=== PATIENT | male | born 1970 | race Caucasian/White ===

== ENCOUNTER 2016-10-16 07:37 | Emergency (ER) | payer BC ==
--- NOTE | 2016-10-16 07:48 | Emergency Department Record ---
History of Present Illness - General Chief Complaint: Shortness of breath Stated Complaint: SHORT OF BREATH/RACING HEART Time Seen by Provider: 10/16/16 07:47 Source: Patient Mode of Arrival: Ambulatory Limitations: No limitations - History of Present Illness Initial Comments: The patient is here due to a 3 hour hx of feeling like his heart is racing and beating hard with mild shortness of breath. The feeling did also start with anxiety. He denies any CP, back pain or any CP with exertion. The patient has had this type of episode in the past and it has been attributed to anxiety. He has been having a lot of issues with personal problems at home due to family events relating to his granddaughter being murdered. The perpetrator was sentenced 3 days ago and he was in court for it and now is having trouble sleeping. He did just see a counselor yesterday who did tell him he has anxiety in addition to PTSD. 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 The patient had a similar issue 2.5 years ago and was seen in the ER and discharged. He then did see a formulation technician and had a neg EST. Complaint: Shortness of breath Onset/Timin -: Hour(s) Consistency: Constant Improves With: Nothing Worsens With: Other Context: Anxiety Associated Symptoms: Denies other symptoms Treatments Prior to Arrival: None - Related Data Home Medications Medication Instructions Recorded Confirmed Last Taken Duloxetine HCl [Cymbalta] 30 mg PO DAILY 07/05/14 10/16/16 Unknown Lansoprazole [Prevacid] 30 mg PO DAILY 07/05/14 10/16/16 Unknown Previous Rx's Medication Instructions Recorded Metformin HCl [Glucophage] 500 mg PO DAILY #30 tablet 07/05/14 Lorazepam [Ativan] 1 mg PO BID #6 tablet 10/16/16 Allergies Allergy/AdvReac Type Severity Reaction Status Date / Time cefazolin sodium Allergy "my throat Verified 07/05/14 06:57 [From Kefzol] gets scratchy." Travel Screening - Travel/Exposure Within Last 30 Days Have you traveled within the last 30 days?: No Review of Systems Constitutional: Denies: Chills, Fever Eyes: Denies: Eye discharge ENT: Denies: Congestion Respiratory: Denies: Cough Cardiovascular: Denies: Arrhythmia, Chest pain, Dyspnea on exertion Endocrine: Denies: Fatigue Gastrointestinal: Denies: Diarrhea Genitourinary: Denies: Dysuria Musculoskeletal: Denies: Back pain Skin: Denies: Bruising Past Medical History - SOCIAL HISTORY Smoking Status: Never smoker Alcohol Use: None Drug Use: None - RESPIRATORY Hx Respiratory Disorders: No - CARDIOVASCULAR Hx Cardio Disorders: No - NEURO Hx Neuro Disorders: No - GI Hx GI Disorders: Yes Comment:: HASTINGS disease - Hx Genitourinary Disorders: No - ENDOCRINE Hx Endocrine Disorders: No - MUSCULOSKELETAL Hx Musculoskeletal Disorders: No - PSYCH Hx Psych Problems: No - HEMATOLOGY/ONCOLOGY Hx Hematology/Oncology Disorders: No Family Medical History Any Significant Family History?: Yes Hx Heart Disease: Father, Grandparents *Heart Comment: father- bypass surgery x 4 first at age 38 Physical Exam - General General Appearance: Alert, Oriented x3, Cooperative, No acute distress - Head Head exam: Atraumatic, Normocephalic, Normal inspection - Eye Eye exam: Normal appearance - ENT Throat exam: Normal inspection. negative: Tonsillar erythema, Tonsillar exudate - Neck Neck exam: Normal inspection, Full ROM. negative: Lymphadenopathy, Meningismus , Tenderness - Respiratory Respiratory exam: Normal lung sounds bilaterally. negative: Respiratory distress - Cardiovascular Cardiovascular Exam: Regular rate, Normal rhythm, Normal heart sounds. negative : Diastolic murmur, Systolic murmur - GI/Abdominal GI/Abdominal exam: Soft, Normal bowel sounds. negative: Tenderness - Extremities Extremities exam: Normal inspection, Full ROM, Normal capillary refill. negative: Calf tenderness, Pedal edema, Tenderness - Neurological Neurological exam: Alert, Normal gait. negative: Abnormal gait, Motor sensory deficit - Psychiatric Psychiatric exam: negative: Depressed, Flat affect Course Vital Signs 10/16/16 07:39 Temperature 97.9 F Pulse Rate 95 H Respiratory 16 Rate Blood Pressure 150/84 Pulse Ox 99 - Reevaluation(s) Reevaluation #1: The patient is doing very well at this time. He denies any pain or discomfort. I strongly doubt any cardiac issues due to the patient not having any pain or discomfort and do believe his symptoms are due to anxiety which he believes also. I also doubt any problems due to a PE due to the patient being Low prob by Wells Criteria and PERC neg. He is to see his PCP early next week and return to the ER for any problems. 10/16/16 08:56 Reevaluation #2: On further reflection I did call the patient at home regarding performing further cardiac tests here in the ER and possibly having the patient stay in the hospital overnight to be sure his heart is OK and not causing his symptoms. I did recommend having the patient return to the ER for further testing and possibly obtaining a cardiology consult. The patient states he has an appointment with his PCP at 2:00 pm today and would like to see him about the issues. He states if his PCP wants him to stay he will return to the ER then for further evaluation. 10/16/16 09:47 Medical Decision Making - Data Complexity MDM Data: Labs Ordered and/or Reviewed, X-Ray Ordered and/or Reviewed, EKG Ordered and/or Reviewed - Lab Data Result diagrams: 10/16/16 08:10 10/16/16 08:10 - EKG Data -: EKG Interpreted by Me EKG: No Acute Changes, Unchanged From Previous - Radiology Data Radiology results: Report reviewed (CXR: Neg.) Disposition Disposition: Discharge Clinical Impression: Anxiety attack Disposition: Home, Self-Care Condition: (1) Good Instructions: Generalized Anxiety Disorder (ED) Additional Instructions: Please rest today and use the Ativan if needed. Please increase your Metformin to 500 mg BID. Please see your PCP for recheck early next week and return to the ER for any wosening anxiety, or any Chest Pain, Shortness of breath, or difficulty breathing. Prescriptions: Lorazepam [Ativan] 1 mg PO BID #6 tablet Forms: Patient Portal Access Time of Disposition: 08:56
[2016-10-16 08:16] LABS: BASO % 0.6 % (0-6); GRAN % 68.6 % (47-80); HEMATOCRIT 44.9 % (42.0-52.0); HEMOGLOBIN 15.2 gm/dl (14.0-18.0); LYMPH % 24.2 % (16-45); MEAN CELL VOLUME 84.2 fl (81-97); MEAN CORPUSCULAR HEMOGLOBIN 28.5 pg (27-33); MEAN CORPUSCULAR HGB CONC 33.9 g/dl (32-36); MEAN PLATELET VOLUME 10.3 fl (7.4-10.4); MONO % 5.6 % (0-9); PLATELET COUNT 261 K/uL (130-400); RED BLOOD COUNT 5.33 M/uL (4.40-5.70); RED CELL DISTRIBUTION WIDTH 13.9 % (11.5-14.5); WHITE BLOOD COUNT W/O DIFF 10.5 K/uL (4.2-12.2)
[2016-10-16 08:24] LABS: BLOOD UREA NITROGEN 15 mg/dL (9-20); CREATINE PHOSPHOKINASE 36 U/L (55-170); CREATININE 0.6 mg/dL (0.66-1.25); EST GLOMERULAR FILTRATION RATE > 60 ml/min; GLUCOSE,RANDOM 286 mg/dL (70-110)
[2016-10-16 08:39] LABS: CKMB < 0.2 ug/L (0-6); TROPONIN I < 0.012 ng/mL (0.00-0.034)
--- NOTE | 2016-10-20 15:59 | RADIOLOGY REPORT ---
DATE: 10/16/2016. EXAM: TWO VIEWS OF THE CHEST. HISTORY: The patient has acute shortness of breath. TECHNIQUE: Two views of the chest were provided along with a comparison study dated 07/05/2014. FINDINGS: The cardiac silhouette is within normal limits for size and contour. The donte appear unremarkable. There is no radiographic evidence of a focal infiltrate or pleural effusion. No pneumothorax is noted. The visualized osseus thoracic structures are unremarkable. IMPRESSION: NO RADIOGRAPHIC EVIDENCE OF AN ACUTE INTRATHORACIC PROCESS. JOB NUMBER: [id number] [facility]
== END 2016-10-16 09:08 | disposition home or self-care (01) ==
LOC: ER 07:37
DX: F41.0 Panic disorder [episodic paroxysmal anxiety] (principal); R06.02 Shortness of breath

== ENCOUNTER 2016-10-16 11:48 | Observation (INO) | payer BC ==
--- NOTE | 2016-10-16 12:02 | Emergency Department Record ---
History of Present Illness - General Chief Complaint: Rapid heartbeat Stated Complaint: RACING HEART/SOB Time Seen by Provider: 10/16/16 11:49 Source: Patient Mode of Arrival: Ambulatory Limitations: No limitations - History of Present Illness Initial Comments: The patient is here due to having more of his palpitations and ANA M. He denies any CP or back pain but is having mild epigastric discomfort. The patient was in the ER a few hours ago here and diagnosed with anxiety. He does have cardiac risk factors of DMII, and a strong family hx of CAD. MD Complaint: Palpitations - Related Data Home Medications Medication Instructions Recorded Confirmed Last Taken Duloxetine HCl [Cymbalta] 30 mg PO DAILY 07/05/14 10/16/16 Unknown Lansoprazole [Prevacid] 30 mg PO DAILY 07/05/14 10/16/16 Unknown Previous Rx's Medication Instructions Recorded Metformin HCl [Glucophage] 500 mg PO DAILY #30 tablet 07/05/14 Lorazepam [Ativan] 1 mg PO BID #6 tablet 10/16/16 Allergies Allergy/AdvReac Type Severity Reaction Status Date / Time cefazolin sodium Allergy "my throat Verified 07/05/14 06:57 [From Kefzol] gets scratchy." Review of Systems Constitutional: Denies: Chills, Fever Eyes: Denies: Eye discharge ENT: Denies: Congestion Respiratory: Denies: Cough Past Medical History - SOCIAL HISTORY Smoking Status: Never smoker Drug Use: None - RESPIRATORY Hx Respiratory Disorders: No - CARDIOVASCULAR Hx Cardio Disorders: No - NEURO Hx Neuro Disorders: No - GI Hx GI Disorders: Yes Comment:: HASTINGS disease - Hx Genitourinary Disorders: No - ENDOCRINE Hx Endocrine Disorders: No - MUSCULOSKELETAL Hx Musculoskeletal Disorders: No - PSYCH Hx Psych Problems: No - HEMATOLOGY/ONCOLOGY Hx Hematology/Oncology Disorders: No Family Medical History Hx Heart Disease: Father, Grandparents *Heart Comment: father- bypass surgery x 4 first at age 38 Physical Exam - General General Appearance: Alert, Oriented x3, Cooperative, No acute distress - Head Head exam: Atraumatic, Normocephalic, Normal inspection - Eye Eye exam: Normal appearance, PERRL - Neck Neck exam: Normal inspection, Full ROM. negative: Tenderness - Respiratory Respiratory exam: Normal lung sounds bilaterally. negative: Respiratory distress - Cardiovascular Cardiovascular Exam: Regular rate, Normal rhythm, Normal heart sounds - Extremities Extremities exam: Normal inspection, Full ROM, Normal capillary refill. negative: Tenderness Course - Reevaluation(s) Reevaluation #1: The patient is doing well. He is resting comfortably with no pain or discomfort. I did discuss the plan with him and the need for a short stay admission to be sure his heart is OK and he agrees. I then did discuss the case with María (JUAN) and she agrees to the admission. 10/16/16 12:50 Medical Decision Making - Data Complexity MDM Data: Labs Ordered and/or Reviewed, EKG Ordered and/or Reviewed - EKG Data -: EKG Interpreted by Me EKG: No Acute Changes, Unchanged From Previous Disposition Disposition: Admit Clinical Impression: Atypical Chest Pain Disposition: Still a Patient at [facility] Decision to Admit: Admit from ER Decision to Admit Date: 10/16/16 Decision to Admit Time: 12:51 Accepting Physician: Marylin Time Discussed w/Accepting Physician: 12:51 Condition: (2) Stable Forms: Patient Portal Access Time of Disposition: 12:51
[2016-10-16 12:48] LABS: CKMB < 0.2 ug/L (0-6); TROPONIN I < 0.012 ng/mL (0.00-0.034)
[2016-10-16] MEDS ORDERED: LORAZEPAM 0.5 MG TABLET PO ONE (12:52)
[2016-10-16] MEDS ORDERED: ASPIRIN 325 MG TABLET PO ONE (12:56)
[2016-10-16] MEDS ORDERED: LORAZEPAM 0.5 MG TABLET PO PRN (14:34)
[2016-10-16] MEDS ORDERED: ACETAMINOPHEN 500 MG TABLET PO PRN (14:34)
[2016-10-16] MEDS ORDERED: NITROGLYCERIN 0.4MG SL TABLET #25 BTL SL PRN (14:34)
[2016-10-16] MEDS: ASPIRIN 325 MG TAB ENTERIC-COATED PO SCH (14:55)
[2016-10-16] MEDS: METFORMIN 500 MG TABLET PO SCH (17:16)
[2016-10-17] MEDS ORDERED: PANTOPRAZOLE SODIUM 40 MG TABLET PO SCH (07:00)
[2016-10-17 08:06] LABS: ANION GAP 14.4 (7-16); BLOOD UREA NITROGEN 13 mg/dL (9-20); CARBON DIOXIDE 23.6 mmol/L (22-30); CREATININE 0.5 mg/dL (0.66-1.25); EST GLOMERULAR FILTRATION RATE > 60 ml/min; GLUCOSE,RANDOM 257 mg/dL (70-110)
[2016-10-17] MEDS: ASPIRIN 325 MG TAB ENTERIC-COATED PO SCH ×2 (08:36→09:18)
[2016-10-17] MEDS: DULOXETINE HCL 30 MG CAPSULE.DR PO SCH ×2 (08:36→09:18)
[2016-10-17] MEDS: METFORMIN 500 MG TABLET PO SCH (08:41)
[2016-10-17] MEDS ORDERED: METFORMIN 500 MG PO SCH (08:45)
--- NOTE | 2016-10-17 17:08 | History & Physical ---
History of Present Illness - Date of Service Date of Service for History & Physical: 10/17/16 - History of Present Illness Admitting Diagnosis: 1. Atypical Chest Pain, R/O [place]. History of Present Illness: 46yo male with CC of heart palpitations. Patient has history of T2DM, anxiety, and HASTINGS. Patient presented to ED after having palpitations and ANA M. He denied any CP or back pain but was having mild epigastric discomfort. He had had similar episodes in the past with anxiety/stress but this did not resolve right away so decided to come to the ED. While in the ED, patient had EKG that was negative for ischemic changes. 1st set of CE returned WNL range. The rest of his labs including cbc and cmp were unremarkable. Due to patient's cardiovascular risk factors, he was admitted for serial enzymes and chest pain rule out. 10/17/16- Patient states his palpitations resolved yesterday while in the ED. He describes the feeling as if his heart was just beating very hard. Wasn't really causing pain and did not feel like his heart was racing. He was a little short of breath at the time but that has resolved as well. He has followed with Dr. Bain, cardiology in the past. Last saw him about 3 years ago. Says he had a stress test done at that time that was normal. Patient does have significant family CVD history. His father underwent open heart bypass when he was in his 30 's. Finish Mill Operator: Odell Travel Screening - Travel/Exposure Within Last 30 Days Have you traveled within the last 30 days?: No - Travel/Exposure Within Last Year Have you traveled outside the [place] in the last year?: No - Travel Symptoms Symptom Screening: None Review of Systems Constitutional: Denies: Chills, Fever Eyes: Denies: Eye discharge ENT: Denies: Congestion Respiratory: Denies: Cough Cardiovascular: Reports: Palpitations (yesterday). Denies: Chest pain, Edema, Syncope Endocrine: Denies: Fatigue Gastrointestinal: Denies: Abdominal pain, Nausea, Vomiting Neurological: Denies: Abnormal gait, Confusion, Headache, Numbness, Paresthesias , Seizure, Tingling, Tremors, Vertigo, Weakness Psychiatric: Reports: Anxiety, Depression Past Medical History - SOCIAL HISTORY Smoking Status: Never smoker Alcohol Use: None Drug Use: None - RESPIRATORY Hx Respiratory Disorders: No - CARDIOVASCULAR Hx Cardio Disorders: No - NEURO Hx Neuro Disorders: No - GI Hx GI Disorders: Yes Comment:: HASTINGS disease - Hx Genitourinary Disorders: No - ENDOCRINE Hx Endocrine Disorders: Yes Hx Diabetes: Yes Hx Thyroid Disease: Yes Comment:: borderline diabetic - MUSCULOSKELETAL Hx Musculoskeletal Disorders: Yes Hx Arthritis: Yes (back) - PSYCH Hx Psych Problems: Yes Hx Anxiety: No Hx Behavior Problems: No Hx Depression: Yes Hx Emotional Abuse: No Hx Sexual Abuse: No Hx Suicide Attempt: No Major Depressive Episode: No Feelings of Hopelessness: No - HEMATOLOGY/ONCOLOGY Hx Hematology/Oncology Disorders: No Family Medical History Any Significant Family History?: Yes Hx Cancer: Mother, Brother/Sister Hx Heart Disease: Father, Grandparents *Heart Comment: father- bypass surgery x 4 first at age 38 H&P Meds/Allergies - Allergies Allergies: Allergies Allergy/AdvReac Type Severity Reaction Status Date / Time cefazolin sodium Allergy "my throat Verified 10/16/16 15:59 [From Kefzol] gets scratchy." - Home Medications Home Medications Medication Instructions Recorded Confirmed Last Taken Duloxetine HCl [Cymbalta] 30 mg PO DAILY 07/05/14 10/16/16 Unknown Lansoprazole [Prevacid] 30 mg PO DAILY 07/05/14 10/16/16 Unknown Metformin HCl [Metformin HCl ER] 500 mg PO BID 10/16/16 10/16/16 Unknown Previous Rx's Medication Instructions Recorded Lorazepam [Ativan] 1 mg PO BID #6 tablet 10/16/16 - Active Medications Active Medications: Current Medications Acetaminophen (Tylenol 500mg Tab) 500 mg PO Q6H PRN PRN Reason: PAIN/TEMP Aspirin (Ecotrin (Ec)) 325 mg PO DAILY [facility] Last Admin: 10/17/16 09:18 Dose: Not Given Duloxetine HCl (Cymbalta) 30 mg PO DAILY [facility] Last Admin: 10/17/16 09:18 Dose: Not Given Lorazepam (Ativan) 0.5 mg PO BID PRN PRN Reason: ANXIETY Metformin HCl (Glucophage Xr) 500 mg PO BIDWM [facility] Last Admin: 10/17/16 08:39 Dose: 500 mg Nitroglycerin (Nitrostat 0.4mg) 0.4 mg SL Q5MIN PRN PRN Reason: CHEST PAIN Stop: 10/18/16 14:35 Pantoprazole Sodium (Protonix) 40 mg PO DAILYAC [facility] Last Admin: 10/17/16 06:47 Dose: 40 mg Physical Exam - Vital Signs Vital Signs: Vital Signs - Last 24 Hrs Temp Pulse Pulse Resp BP BP Pulse Ox 10/17/16 09:00 94 H 18 10/17/16 08:50 97.5 F L 93 H 18 141/88 96 10/17/16 06:32 97.9 F 90 18 121/78 96 10/17/16 00:17 97.7 F 82 18 118/66 97 10/16/16 20:34 98.1 F 88 16 130/64 97 - General General Appearance: Alert, Oriented x3, Cooperative, No acute distress Limitations: No limitations - Head Head exam: Atraumatic, Normocephalic, Normal inspection - Eye Eye exam: Normal appearance, PERRL - Neck Neck exam: Normal inspection, Full ROM. negative: Tenderness - Respiratory Respiratory exam: Normal lung sounds bilaterally. negative: Respiratory distress - Cardiovascular Cardiovascular Exam: Regular rate, Normal rhythm, Normal heart sounds - GI/Abdominal GI/Abdominal exam: Soft, Normal bowel sounds. negative: Tenderness - Extremities Extremities exam: Normal inspection, Full ROM, Normal capillary refill. negative: Calf tenderness, Pedal edema, Tenderness - Neurological Neurological exam: Alert, Normal gait, Oriented X3, Reflexes normal - Psychiatric Psychiatric exam: Normal affect, Normal mood Results - Labs Result Diagrams: 10/17/16 07:40 Labs Last 24 Hours: Laboratory Results - last 24 hr 10/16/16 10/16/16 10/17/16 18:00 18:00 00:10 Sodium Potassium Chloride Carbon Dioxide Anion Gap BUN Creatinine Estimated GFR Random Glucose Calcium CK-MB (CK-2) < 0.2 < 0.2 Troponin I < 0.012 10/17/16 10/17/16 00:10 07:40 Sodium 135 L Potassium 4.1 Chloride 97 L Carbon Dioxide 23.6 Anion Gap 14.4 BUN 13 Creatinine 0.5 L Estimated GFR > 60 Random Glucose 257 H Calcium 8.7 CK-MB (CK-2) Troponin I < 0.012 VTE H&P Assessment - Risk for VTE Risk for VTE: No Risk Level: Low Risk Assessment Date: 10/17/16 Risk Assessment Time: 16:00 VTE Orders Placed or Will Be Placed: No VTE Reason for No Prophylaxis: Not Indicated Plan - Detailed Diagnosis and Plan (1) Atypical chest pain Status: Acute Base Code: R07.89 - OTHER CHEST PAIN Comment: 10/17/16- Heart palpitations resolved and have not returned. All 3 sets of CE returned WNL range. Repeat EKG this mornign was unchanged from previous. Do not feel pain was cardiac in origin but possibly related to stressful life event that occurred this week, however, patient does have several CVD risk factors (T2DM, obesity, family history) and has not had stress test in 3 years. -will order echo -will order treadmill stress test -continue to monitor vitals q8H (2) DVT prophylaxis Status: Acute Base Code: [id number] - Comment: 10/17/16- Patient low risk with no restricted mobility and has been up ambulating and will be doing treadmill stress test today as well. -will continue to encourage ambulation (3) Full code status Status: Acute Base Code: Z78.9 - OTHER SPECIFIED HEALTH STATUS Comment: 10/17/16- patient is full code
--- NOTE | 2016-10-17 17:13 | Discharge Summary ---
Providers Discharge Summary Date: 10/17/16 Date of admission: 10/16/16 13:16 Expected Date of Discharge: 10/17/16 Attending physician: RAYSHAWN FRENCH Primary care physician: JEFF PORTILLO D.O. Physical Exam - Vital Signs Vital Signs: Vital Signs - Last 24 Hrs Temp Pulse Pulse Resp BP BP Pulse Ox 10/17/16 09:00 94 H 18 10/17/16 08:50 97.5 F L 93 H 18 141/88 96 10/17/16 06:32 97.9 F 90 18 121/78 96 10/17/16 00:17 97.7 F 82 18 118/66 97 10/16/16 20:34 98.1 F 88 16 130/64 97 - General General Appearance: Alert, Oriented x3, Cooperative, No acute distress Limitations: No limitations - Head Head exam: Atraumatic, Normocephalic, Normal inspection - Eye Eye exam: Normal appearance, PERRL - Neck Neck exam: Normal inspection, Full ROM. negative: Tenderness - Respiratory Respiratory exam: Normal lung sounds bilaterally. negative: Respiratory distress - Cardiovascular Cardiovascular Exam: Regular rate, Normal rhythm, Normal heart sounds - Extremities Extremities exam: Normal inspection, Full ROM, Normal capillary refill. negative: Tenderness - Neurological Neurological exam: Alert, Normal gait, Oriented X3, Reflexes normal - Psychiatric Psychiatric exam: Normal affect, Normal mood Hospitalization - Hospitalization Admission Diagnosis: 1. Atypical Chest Pain, R/O [place]. - Problem List/Discharge Diagnosis (1) Atypical chest pain Status: Acute Base Code: R07.89 - OTHER CHEST PAIN Comment: 10/17/16- Heart palpitations resolved and have not returned. All 3 sets of CE returned WNL range. Repeat EKG this mornign was unchanged from previous. Preliminary echo report shows EF of 65% and Treadmill stress test was negative for ischemia. Do not feel this episode was cardiac in origin. -Will have patient follow up with Dr. burgess in 1-2 weeks and his PCP Dr. Portillo within 1 week. -I did encourage him to return to ED if he has return of his symptoms or new concerns. (2) Full code status Status: Acute Base Code: Z78.9 - OTHER SPECIFIED HEALTH STATUS Comment: 10/17/16- patient is full code (3) DVT prophylaxis Status: Acute Base Code: [id number] - Comment: 10/17/16- Patient low risk with no restricted mobility and has been up ambulating and will be doing treadmill stress test today as well. -will continue to encourage ambulation - Hospitalization Course Disposition: Home, Self-Care Hospital Course: 46yo male with CC of heart palpitations. Patient has history of T2DM, anxiety, and HASTINGS. Patient presented to ED after having palpitations and ANA M. He denied any CP or back pain but was having mild epigastric discomfort. He had had similar episodes in the past with anxiety/stress but this did not resolve right away so decided to come to the ED. While in the ED, patient had EKG that was negative for ischemic changes. 1st set of CE returned WNL range. The rest of his labs including cbc and cmp were unremarkable. Due to patient's cardiovascular risk factors, he was admitted for serial enzymes and chest pain rule out. 10/17/16- Patient states his palpitations resolved yesterday while in the ED. He describes the feeling as if his heart was just beating very hard. Wasn't really causing pain and did not feel like his heart was racing. He was a little short of breath at the time but that has resolved as well. He has followed with Dr. Burgess, cardiology in the past. Last saw him about 3 years ago. Says he had a stress test done at that time that was normal. Patient does have significant family CVD history. His father underwent open heart bypass when he was in his 30 's. Associate Pathologist: Odell Procedures: Cardiology Procedures 10/16/16 17:42 Echocardiogram 2D - Limited ONCE Stress EKG/STD Treadmill ONCE Abnormal Labs: Abnormal Lab Results 10/17/16 Range/Units 07:40 Sodium 135 L (136-145) mmol/L Chloride 97 L (98-107) mmol/L Creatinine 0.5 L (0.66-1.25) mg/dL Random Glucose 257 H (70-110) mg/dL Condition at Discharge: (2) Stable Discharge Medications - Discharge Medications Home Medications: Ambulatory Orders Duloxetine HCl [Cymbalta] 30 mg PO DAILY 07/05/14 [Last Taken Unknown] Lansoprazole [Prevacid] 30 mg PO DAILY 07/05/14 [Last Taken Unknown] Lorazepam [Ativan] 1 mg PO BID #6 tablet 10/16/16 [Last Taken Unknown] Metformin HCl [Metformin HCl ER] 500 mg PO BID 10/16/16 [Last Taken Unknown] Discharge Plan - Discharge Instructions Activity at Discharge: Resume Usual Activities As Tolerated Diet at Discharge: Low Fat, Low Cholesterol, Low Salt Diet Instructions: Palpitations (DC), Heart Healthy Diet (DC), Low Sodium Diet (DC) Additional Instructions: 2 Activity: As tolerated 2 Diet: Cardiac diet as tolerated 2 Consults: [] 2 Follow Up: [With Dr. Portillo within 1 week, call Thursday for appointment] 2 Dressing/Wound Care: (Type) (Change) 2 Additional: [Continue home medications Return to the emergency room with any new or worsening symptoms such as headache , heart palpitations, chest pain, difficulty in breathing, acute weakness.]
--- NOTE | 2016-10-18 11:29 | Stress Test Report ---
EXERCISE STRESS TEST ORDERING PHYSICIAN: Florencia Day M.D. INDICATIONS: None documented. BASELINE EKG: Sinus rhythm. Left ventricular hypertrophy. Poor R-wave progression. Ventricular rate 94. MD interval 168 milliseconds. QRS 84 milliseconds. QT corrected 440 milliseconds. Resting blood pressure 150/94. DESCRIPTION: The patient exercised on a motorized treadmill for 6 minutes and 12 seconds, achieving a peak MET level of approximately 7 METs. Peak heart rate was 150 beats per minute which was greater than 85% of the maximum age- predicted heart rate. Peak blood pressure was 190/100. Continuous ECG monitoring revealed no EKG changes that met diagnostic criteria for ischemia. There were no significant ventricular or atrial arrhythmias identified. The patient had no complaints of chest discomfort during exercise or in recovery. The test was terminated due to achievement of target heart rate and knee discomfort. IMPRESSIONS: 1. Negative exercise stress test to approximately 7 METs. 2. Hypertension at rest. 3. No chest discomfort. 4. Poor fitness level for age. 5. Clinical correlation recommended. Jacob Leggett D.O. Date Time JOB NUMBER: [id number] MTDD
== END 2016-10-17 18:55 | disposition home or self-care (01) ==
LOC: ER 11:48 → MEDSURG 13:16
PROVIDERS: ADMIT Family Medicine; ATTEND Family Medicine
DX: R07.89 Other chest pain (principal); F41.0 Panic disorder [episodic paroxysmal anxiety]; R06.02 Shortness of breath; Z78.9 Other specified health status; E11.9 Type 2 diabetes mellitus without complications; Z79.84 Long term (current) use of oral hypoglycemic drugs
CPT/HCPCS: 99284 ×2; 99285 ×2; 82550; 85025; 82553 ×2; 84484 ×2; 80048 ×2; 71020; 93005 ×2; 93017; 93010 ×2; G0378 ×2; 99220

== ENCOUNTER 2017-01-01 10:15 | Emergency (ER) | payer BC ==
--- NOTE | 2017-01-01 10:26 | Emergency Department Record ---
History of Present Illness - General Chief Complaint: Back Pain/Injury Stated Complaint: BACK AND HIP PAIN Time Seen by Provider: 01/01/17 10:24 Source: Patient Mode of Arrival: Ambulatory Limitations: No limitations - History of Present Illness Initial Comments: The patient is here due to low back pain for 5 days. The onset has been gradual with the pain located in the lower back and side areas. The patient denies any injury or trauma and has had no past similar issues. Movement and twisting increase the pain and there has been NO radiation of the pain down the legs, or any leg numbness, tingling, weakness or any bowel or bladder issues. The patient states his urine has been smelling strong and he is concerned about a kidney infection. MD Complaint: Back pain Onset/Timin -: Days(s) Similar Symptoms Previously: No Place: Home Radiation: Other Severity scale (1-10): 7 Quality: Burning Consistency: Constant Improves With: Immobilization Worsens With: Movement, Other Context: Unknown Associated Symptoms: Denies other symptoms - Related Data Home Medications Medication Instructions Recorded Confirmed Last Taken Duloxetine HCl [Cymbalta] 30 mg PO DAILY 07/05/14 01/01/17 Unknown Lansoprazole [Prevacid] 30 mg PO DAILY 07/05/14 01/01/17 Unknown Metformin HCl [Metformin HCl ER] 500 mg PO BID 10/16/16 01/01/17 Unknown Sitagliptin Phosphate [Januvia] 100 mg PO DAILY 01/01/17 01/01/17 Unknown Previous Rx's Medication Instructions Recorded Cyclobenzaprine HCl [Flexeril] 10 mg PO TID PRN #20 tablet 01/01/17 Naproxen [Naprosyn] 500 mg PO BID #14 tablet. 01/01/17 Allergies Allergy/AdvReac Type Severity Reaction Status Date / Time cefazolin sodium Allergy "my throat Verified 10/16/16 15:59 [From Kefzol] gets scratchy." Travel Screening - Travel/Exposure Within Last 30 Days Have you traveled within the last 30 days?: No Review of Systems Constitutional: Reports: Malaise. Denies: Chills, Fever Eyes: Denies: Eye discharge ENT: Denies: Congestion Respiratory: Denies: Cough, Dyspnea Cardiovascular: Denies: Arrhythmia, Chest pain Past Medical History - SOCIAL HISTORY Smoking Status: Never smoker Alcohol Use: None Drug Use: None - RESPIRATORY Hx Respiratory Disorders: No - CARDIOVASCULAR Hx Cardio Disorders: No - NEURO Hx Neuro Disorders: No - GI Hx GI Disorders: Yes Comment:: HASTINGS disease - Hx Genitourinary Disorders: No - ENDOCRINE Hx Endocrine Disorders: Yes Hx Diabetes: Yes Hx Thyroid Disease: Yes Comment:: borderline diabetic - MUSCULOSKELETAL Hx Musculoskeletal Disorders: Yes Hx Arthritis: Yes (back) - PSYCH Hx Psych Problems: Yes Hx Anxiety: No Hx Behavior Problems: No Hx Depression: Yes Hx Emotional Abuse: No Hx Sexual Abuse: No Hx Suicide Attempt: No - HEMATOLOGY/ONCOLOGY Hx Hematology/Oncology Disorders: No Family Medical History Any Significant Family History?: Yes Hx Cancer: Mother, Brother/Sister Hx Heart Disease: Father, Grandparents *Heart Comment: father- bypass surgery x 4 first at age 38 Physical Exam - General General Appearance: Alert, Oriented x3, Cooperative, No acute distress - Head Head exam: Atraumatic, Normocephalic, Normal inspection - Eye Eye exam: Normal appearance, PERRL - Neck Neck exam: Normal inspection, Full ROM. negative: Tenderness - Respiratory Respiratory exam: Normal lung sounds bilaterally. negative: Respiratory distress - Cardiovascular Cardiovascular Exam: Regular rate, Normal rhythm, Normal heart sounds - GI/Abdominal GI/Abdominal exam: Soft, Normal bowel sounds. negative: Distended, Rebound, Rigid, Tenderness - Back Back exam: Reports: Normal inspection, Paraspinal tenderness (L4-S1 area.), Other (Neg SLR bilaterally.). Denies: Muscle spasm, Vertebral tenderness - Neurological Neurological exam: Alert, Altered, Normal gait, Oriented X3, Reflexes normal. negative: Abnormal gait, Motor sensory deficit Course Vital Signs 01/01/17 10:18 Temperature 97.3 F L Pulse Rate 98 H Respiratory 20 Rate Blood Pressure 139/101 Pulse Ox 98 - Reevaluation(s) Reevaluation #1: I did discuss the lab and xray results with the patient. We did discuss the fact that his pain is not due to a kidney infection and probably is musculoskeletal in origin. He is to F/U with his PCP for recheck and to adjust his DM medicines. 01/01/17 11:30 Medical Decision Making - Data Complexity MDM Data: Labs Ordered and/or Reviewed, X-Ray Ordered and/or Reviewed - Lab Data Result diagrams: 01/01/17 10:30 01/01/17 10:30 - Radiology Data Radiology results: Report reviewed (LS Spine: No acute changes.) Disposition Disposition: Discharge Clinical Impression: Low back pain Qualifiers: Chronicity: acute Back pain laterality: unspecified Sciatica presence: without sciatica Qualified Code(s): M54.5 - Low back pain Disposition: Home, Self-Care Condition: (1) Good Instructions: Low Back Strain (ED) Additional Instructions: Please take the naprosyn and flexeril for pain as directed. Please see your PCP early next week for recheck and to adjust your DM medicines. Return to the ER for any increased pain, or any fever, weakness or bowel or bladder issues. Prescriptions: Cyclobenzaprine HCl [Flexeril] 10 mg PO TID PRN #20 tablet PRN Reason: Pain Naproxen [Naprosyn] 500 mg PO BID #14 tablet. Time of Disposition: 11:30
[2017-01-01 10:40] LABS: URINE APPEARANCE CLEAR; URINE BILIRUBIN NEGATIVE (NEGATIVE); URINE BLOOD NEGATIVE (NEGATIVE); URINE COLOR YELLOW; URINE KETONE NEGATIVE (NEGATIVE); URINE LEUKOCYTE ESTERASE NEGATIVE (NEGATIVE); URINE NITRITE NEGATIVE (NEGATIVE); URINE PROTEIN TRACE (NEGATIVE); URINE UROBILINOGEN 0.2 E.U./dL (0.20 - 1.00)
[2017-01-01 10:42] LABS: BASO % 0.6 % (0-6); EOS % 1.1 % (0-6); GRAN % 68.1 % (47-80); HEMATOCRIT 49.3 % (42.0-52.0); HEMOGLOBIN 16.4 gm/dl (14.0-18.0); LYMPH % 24.1 % (16-45); MEAN CELL VOLUME 83.1 fl (81-97); MEAN CORPUSCULAR HEMOGLOBIN 27.6 pg (27-33); MEAN CORPUSCULAR HGB CONC 33.3 g/dl (32-36); MEAN PLATELET VOLUME 10.2 fl (7.4-10.4); MONO % 6.1 % (0-9); PLATELET COUNT 291 K/uL (130-400); RED BLOOD COUNT 5.93 M/uL (4.40-5.70); RED CELL DISTRIBUTION WIDTH 13.7 % (11.5-14.5); WHITE BLOOD COUNT W/O DIFF 10.6 K/uL (4.2-12.2)
[2017-01-01 10:43] LABS: URINE GLUCOSE (UA) >=1000 mg/dL (NEGATIVE)
[2017-01-01 10:54] LABS: ANION GAP 11.5 (7-16); BLOOD UREA NITROGEN 13 mg/dL (9-20); CARBON DIOXIDE 23.5 mmol/L (22-30); CREATININE 0.7 mg/dL (0.66-1.25); EST GLOMERULAR FILTRATION RATE > 60 ml/min; GLUCOSE,RANDOM 289 mg/dL (70-110)
[2017-01-01] MEDS ORDERED: NAPROXEN 250 MG TABLET PO ONE (11:04)
== END 2017-01-01 11:35 | disposition home or self-care (01) ==
LOC: ER 10:15
DX: M54.5 Low back pain (principal); R82.99 Other abnormal findings in urine; E11.9 Type 2 diabetes mellitus without complications; Z79.84 Long term (current) use of oral hypoglycemic drugs
CPT/HCPCS: 72110; 80048; 81003; 85025; 99283; 99284

== ENCOUNTER 2017-05-13 15:58 | Emergency (ER) | payer BC ==
[2017-05-13] MEDS ORDERED: ASPIRIN 81 MG CHEWABLE TABLET PO ONE (16:11)
[2017-05-13] MEDS ORDERED: AL HYDROX/MAG HYDROX 30ML UD PO ONE (16:17)
[2017-05-13 16:22] LABS: BASO % 0.4 % (0-6); EOS % 1.3 % (0-6); GRAN % 65.5 % (47-80); HEMATOCRIT 46.3 % (42.0-52.0); HEMOGLOBIN 15.6 gm/dl (14.0-18.0); LYMPH % 26.9 % (16-45); MEAN CELL VOLUME 84.2 fl (81-97); MEAN CORPUSCULAR HEMOGLOBIN 28.4 pg (27-33); MEAN CORPUSCULAR HGB CONC 33.7 g/dl (32-36); MEAN PLATELET VOLUME 9.9 fl (7.4-10.4); MONO % 5.9 % (0-9); PLATELET COUNT 318 K/uL (130-400); RED CELL DISTRIBUTION WIDTH 13.6 % (11.5-14.5); WHITE BLOOD COUNT W/O DIFF 13.5 K/uL (4.2-12.2)
--- NOTE | 2017-05-13 16:31 | Emergency Department Record ---
History of Present Illness - General Chief Complaint: Chest Pain Stated Complaint: CHEST AND BACK PAIN Time Seen by Provider: 05/13/17 16:05 Source: Patient, RN notes reviewed Mode of Arrival: Ambulatory - History of Present Illness Initial Comments: patient had nausea and tired yesterday and went to bed and wake up at 3am and vomited and diarrhea this am times one . Tired and not feeling well. He called a friend and she recommended he come to the hospital. No appetite. only drinking fluids. Some chest discomfort cramp yesterday and last night cramps in the chest and radiates to the back. 11 am yesterday he ate chicken nugetts. PMH fatty liver and HASTINGS disease. No chest pain now and no dysnea PMH DM type 2 . FAm history Dad had CAD and CABG 38 years old. No cigs or alcohol Onset/Timin -: Hour(s) Onset: Awoke with symptoms Pain Location: Left chest Pain Radiation: Back Quality: Aching Consistency: Intermittent Improves With: Nothing Worsens With: Nothing - Related Data Allergies Allergy/AdvReac Type Severity Reaction Status Date / Time cefazolin sodium Allergy "my throat Verified 10/16/16 15:59 [From Kefzol] gets scratchy." Travel Screening - Travel/Exposure Within Last 30 Days Have you traveled within the last 30 days?: No - Travel/Exposure Within Last Year Have you traveled outside the [place] in the last year?: No - Additonal Travel Details Have you been exposed to anyone with a communicable illness?: No - Travel Symptoms Symptom Screening: None Review of Systems Reviewed: No additional complaints except as noted below Constitutional: Reports: As per HPI. Denies: Chills, Fever, Malaise, Night sweats, Weakness, Weight change Eyes: Reports: As per HPI. Denies: Eye discharge, Eye pain, Photophobia, Vision change ENT: Reports: As per HPI. Denies: Congestion, Dental pain, Ear pain, Epistaxis , Hearing loss, Throat pain Respiratory: Reports: As per HPI. Denies: Cough, Dyspnea, Hemoptysis, Stridor, Wheezes Cardiovascular: Reports: As per HPI, Chest pain. Denies: Arrhythmia, Dyspnea on exertion, Edema, Murmurs, Orthopnea, Palpitations, Paroxysmal nocturnal dyspnea, Rheumatic Fever, Syncope Endocrine: Reports: As per HPI, Fatigue. Denies: Heat or cold intolerance, Polydipsia, Polyuria Gastrointestinal: Reports: As per HPI, Diarrhea, Vomiting. Denies: Abdominal pain, Constipation, Hematemesis, Hematochezia, Melena, Nausea Genitourinary: Reports: As per HPI. Denies: Dysuria, Frequency, Hematuria, Incontinence, Retention, Testicular pain, Testicular mass, Urgency Musculoskeletal: Reports: As per HPI. Denies: Arthralgia, Back pain, Gout, Joint swelling, Myalgia, Neck pain Skin: Reports: As per HPI. Denies: Bruising, Change in color, Change in hair/ nails, Lesions, Pruritus, Rash Neurological: Reports: As per HPI. Denies: Abnormal gait, Confusion, Headache, Numbness, Paresthesias, Seizure, Tingling, Tremors, Vertigo, Weakness Psychiatric: Reports: As per HPI. Denies: Anxiety, Auditory hallucinations, Depression, Homicidal thoughts, Suicidal thoughts, Visual hallucinations Hematological/Lymphatic: Reports: As per HPI. Denies: Anemia, Blood Clots, Easy bleeding, Easy bruising, Swollen glands Past Medical History - SOCIAL HISTORY Smoking Status: Never smoker Alcohol Use: None Drug Use: None - RESPIRATORY Hx Respiratory Disorders: No - CARDIOVASCULAR Hx Cardio Disorders: No - NEURO Hx Neuro Disorders: No - GI Hx GI Disorders: Yes Comment:: HASTINGS disease - Hx Genitourinary Disorders: No - ENDOCRINE Hx Endocrine Disorders: Yes Hx Diabetes: Yes Hx Thyroid Disease: Yes Comment:: borderline diabetic - MUSCULOSKELETAL Hx Musculoskeletal Disorders: Yes Hx Arthritis: Yes (back) - PSYCH Hx Psych Problems: Yes Hx Anxiety: No Hx Behavior Problems: No Hx Depression: Yes Hx Emotional Abuse: No Hx Sexual Abuse: No Hx Suicide Attempt: No - HEMATOLOGY/ONCOLOGY Hx Hematology/Oncology Disorders: No Family Medical History Any Significant Family History?: No Hx Cancer: Mother, Brother/Sister Hx Heart Disease: Father, Grandparents *Heart Comment: father- bypass surgery x 4 first at age 38 Physical Exam - General General Appearance: Alert, Oriented x3, Cooperative, No acute distress - Head Head exam: Normal inspection - Eye Eye exam: Normal appearance, PERRL Pupils: Normal accommodation - ENT ENT exam: Normal exam, Mucous membranes moist, Normal external ear exam, Normal orophraynx, TM's normal bilaterally Ear exam: Normal external inspection. negative: External canal tenderness Nasal Exam: Normal inspection. negative: Discharge, Sinus tenderness Mouth exam: Normal external inspection, Tongue normal Teeth exam: Normal inspection. negative: Dental caries Throat exam: Normal inspection. negative: Tonsillar erythema, Tonsillar exudate - Neck Neck exam: Normal inspection, Full ROM. negative: Tenderness - Respiratory Respiratory exam: Normal lung sounds bilaterally. negative: Respiratory distress - Cardiovascular Cardiovascular Exam: Regular rate, Normal rhythm, Normal heart sounds - GI/Abdominal GI/Abdominal exam: Soft, Normal bowel sounds. negative: Tenderness - Rectal Rectal exam: Deferred - exam: Deferred - Extremities Extremities exam: Normal inspection, Full ROM, Normal capillary refill. negative: Tenderness - Back Back exam: Reports: Normal inspection, Full ROM. Denies: Muscle spasm, Rash noted, Tenderness - Neurological Neurological exam: Alert, Normal gait, Oriented X3, Reflexes normal - Psychiatric Psychiatric exam: Normal affect, Normal mood - Skin Skin exam: Dry, Intact, Normal color, Warm Course Vital Signs 05/13/17 16:00 Temperature 98.1 F Pulse Rate 105 H Respiratory 18 Rate Blood Pressure 148/92 Pulse Ox 100 - Reevaluation(s) Reevaluation #1: feeling better. 05/13/17 16:55 Medical Decision Making - Lab Data Result diagrams: 05/13/17 16:10 05/13/17 16:10 Disposition Clinical Impression: Atypical chest pain GERD (gastroesophageal reflux disease) Qualifiers: Esophagitis presence: esophagitis presence not specified Qualified Code(s): K21.9 - Gastro-esophageal reflux disease without esophagitis Disposition: Home, Self-Care Condition: (1) Good Instructions: Gastroesophageal Reflux Disease (ED), Viral Syndrome (ED) Additional Instructions: follow up with Dr. Boyd in 6 days increase prevacid to twice a day clear liquids return to ED if worse Forms: Patient Portal Access Time of Disposition: 17:37 Quality - Quality Measures Quality Measures: N/A - Blood Pressure Screening Does Patient Have Any of the Following: No Blood Pressure Classification: Hypertensive Reading Systolic Measurement: 148 Diastolic Measurement: 92 Screening for High Blood Pressure: < First Hypertensive BP, F/U Documented > [ G8950] First Hypertensive Follow-up Interventions: Referral to alternative/primary care provider.
[2017-05-13 16:34] LABS: ANION GAP 10.5 (7-16); BLOOD UREA NITROGEN 9 mg/dL (9-20); CARBON DIOXIDE 24.5 mmol/L (22-30); CREATININE 0.7 mg/dL (0.66-1.25); EST GLOMERULAR FILTRATION RATE > 60 ml/min; GLUCOSE,RANDOM 191 mg/dL (70-110)
[2017-05-13] MEDS ORDERED: PANTOPRAZOLE SODIUM 40 MG TABLET PO ONE (16:38)
[2017-05-13 16:47] LABS: CKMB < 0.2 ug/L (0-6); TROPONIN I < 0.012 ng/mL (0.00-0.034)
[2017-05-13 16:54] LABS: ALBUMIN 4.4 gm/dL (3.5-5.0); BILIRUBIN,TOTAL 1.78 mg/dL (0.2-1.3); TOTAL PROTEIN 7.8 gm/dL (6.3-8.2)
[2017-05-13] MEDS ORDERED: LORAZEPAM 2 MG/ML VIAL IV ONE (16:54)
== END 2017-05-13 17:59 | disposition home or self-care (01) ==
LOC: ER 15:58
DX: K21.9 Gastro-esophageal reflux disease without esophagitis (principal); R07.89 Other chest pain; R11.2 Nausea with vomiting, unspecified; R19.7 Diarrhea, unspecified
CPT/HCPCS: 80048; 80076; 82553; 83690; 84484; 85025; 85730; 93005; 93010; 96374; 99284

== ENCOUNTER 2017-06-18 20:40 | Emergency (ER) | payer BC ==
--- NOTE | 2017-06-18 21:31 | Emergency Department Record ---
History of Present Illness - General Chief Complaint: Abdominal Pain Stated Complaint: UPPER ABD PAIN Time Seen by Provider: 06/18/17 21:23 Source: Patient Mode of Arrival: Ambulatory Limitations: No limitations - History of Present Illness Initial Comments: pt has epigastric pain, abd distention, belching that smells like eggs and constant diarrhea that is watery for last few weeks. 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 MD Complaint: Abdominal pain Onset/Timin -: Week(s) Location: Epigastric Radiation: Back Quality: Aching, Sharp Consistency: Constant Improves With: Nothing Worsens With: Eating Associated Symptoms: Diarrhea, Nausea, Vomiting - Related Data Home Medications Medication Instructions Recorded Confirmed Last Taken Exenatide Microspheres [Bydureon 2 mg SQ WEEKLY 06/18/17 06/18/17 06/15/17 Pen] Allergies Allergy/AdvReac Type Severity Reaction Status Date / Time cefazolin sodium Allergy "my throat Verified 10/16/16 15:59 [From Kefzol] gets scratchy." Travel Screening - Travel/Exposure Within Last 30 Days Have you traveled within the last 30 days?: No - Travel Symptoms Symptom Screening: None Review of Systems Reviewed: No additional complaints except as noted below Constitutional: Reports: As per HPI. Denies: Chills, Fever, Malaise, Night sweats, Weakness, Weight change Eyes: Reports: As per HPI. Denies: Eye discharge, Eye pain, Photophobia, Vision change ENT: Reports: As per HPI. Denies: Congestion, Dental pain, Ear pain, Epistaxis , Hearing loss, Throat pain Respiratory: Reports: As per HPI. Denies: Cough, Dyspnea, Hemoptysis, Stridor, Wheezes Cardiovascular: Reports: As per HPI. Denies: Arrhythmia, Chest pain, Dyspnea on exertion, Edema, Murmurs, Orthopnea, Palpitations, Paroxysmal nocturnal dyspnea, Rheumatic Fever, Syncope Endocrine: Reports: As per HPI. Denies: Fatigue, Heat or cold intolerance, Polydipsia, Polyuria Gastrointestinal: Reports: As per HPI. Denies: Abdominal pain, Constipation, Diarrhea, Hematemesis, Hematochezia, Melena, Nausea, Vomiting Genitourinary: Reports: As per HPI. Denies: Dysuria, Frequency, Hematuria, Incontinence, Retention, Testicular pain, Testicular mass, Urgency Musculoskeletal: Reports: As per HPI. Denies: Arthralgia, Back pain, Gout, Joint swelling, Myalgia, Neck pain Skin: Reports: As per HPI. Denies: Bruising, Change in color, Change in hair/ nails, Lesions, Pruritus, Rash Neurological: Reports: As per HPI. Denies: Abnormal gait, Confusion, Headache, Numbness, Paresthesias, Seizure, Tingling, Tremors, Vertigo, Weakness Psychiatric: Reports: As per HPI. Denies: Anxiety, Auditory hallucinations, Depression, Homicidal thoughts, Suicidal thoughts, Visual hallucinations Hematological/Lymphatic: Reports: As per HPI. Denies: Anemia, Blood Clots, Easy bleeding, Easy bruising, Swollen glands Past Medical History - SOCIAL HISTORY Smoking Status: Never smoker - RESPIRATORY Hx Respiratory Disorders: No - CARDIOVASCULAR Hx Cardio Disorders: No - NEURO Hx Neuro Disorders: No - GI Hx GI Disorders: Yes Comment:: HASTINGS disease - Hx Genitourinary Disorders: No - ENDOCRINE Hx Endocrine Disorders: Yes Hx Diabetes: Yes Hx Thyroid Disease: Yes - MUSCULOSKELETAL Hx Musculoskeletal Disorders: Yes Hx Arthritis: Yes (back) - PSYCH Hx Psych Problems: Yes Hx Anxiety: No Hx Behavior Problems: No Hx Depression: Yes Hx Emotional Abuse: No Hx Sexual Abuse: No Hx Suicide Attempt: No - HEMATOLOGY/ONCOLOGY Hx Hematology/Oncology Disorders: No Family Medical History Any Significant Family History?: Yes Hx Cancer: Mother, Brother/Sister Hx Heart Disease: Father, Grandparents *Heart Comment: father- bypass surgery x 4 first at age 38 Physical Exam - General General Appearance: Alert, Oriented x3, Cooperative, Mild distress - Head Head exam: Normal inspection - Eye Eye exam: Normal appearance, PERRL, EOMI Pupils: Normal accommodation - ENT ENT exam: Normal exam, Mucous membranes moist, Normal external ear exam, Normal orophraynx Ear exam: Normal external inspection. negative: External canal tenderness Nasal Exam: Normal inspection. negative: Discharge, Sinus tenderness Mouth exam: Normal external inspection, Tongue normal Teeth exam: Normal inspection. negative: Dental caries Throat exam: Normal inspection. negative: Tonsillar erythema, Tonsillar exudate - Neck Neck exam: Normal inspection, Full ROM. negative: Tenderness - Respiratory Respiratory exam: Normal lung sounds bilaterally. negative: Respiratory distress - Cardiovascular Cardiovascular Exam: Regular rate, Normal rhythm, Normal heart sounds - GI/Abdominal GI/Abdominal exam: Soft, Normal bowel sounds, Tenderness - Rectal Rectal exam: Deferred - exam: Deferred - Extremities Extremities exam: Normal inspection, Full ROM, Normal capillary refill. negative: Tenderness - Back Back exam: Reports: Normal inspection, Full ROM. Denies: Muscle spasm, Rash noted, Tenderness - Neurological Neurological exam: Alert, CN II-XII intact, Normal gait, Oriented X3 - Psychiatric Psychiatric exam: Normal affect, Normal mood - Skin Skin exam: Dry, Intact, Normal color, Warm Course Vital Signs 06/18/17 21:02 Temperature 98.0 F Pulse Rate [ 107 H Pulse Ox Probe] Respiratory 18 Rate Blood Pressure 143/80 [Left Arm] Pulse Ox 97 Medical Decision Making - Lab Data Result diagrams: 06/18/17 21:22 06/18/17 21:22 Disposition Disposition: Discharge Clinical Impression: Ileus Gastritis Qualifiers: Gastritis type: unspecified gastritis Chronicity: acute Gastritis bleeding: without bleeding Qualified Code(s): K29.00 - Acute gastritis without bleeding Disposition: Home, Self-Care Condition: (1) Good Instructions: Gastritis (ED), Ileus (ED), Acute Diarrhea (ED) Additional Instructions: follow up with dr keller. return sooner if worse. Referrals: OLIVER KELLER [DOCTOR OF OSTEOPATH] - [facility] Special[facility] [Provider Group] Forms: Patient Portal Access, Return to Work/School Quality - Quality Measures Quality Measures: N/A - Blood Pressure Screening Does Patient Have Any of the Following: No Blood Pressure Classification: Pre-Hypertensive BP Reading Systolic Measurement: 129 Diastolic Measurement: 84 Screening for High Blood Pressure: < Pre-Hypertensive BP, F/U Documented > [ G8950] Pre-Hypertensive Follow-up Interventions: Follow-up with rescreen every year.
[2017-06-18 21:47] LABS: BASO % 0.4 % (0-6); EOS % 1.2 % (0-6); GRAN % 64.1 % (47-80); HEMATOCRIT 45.3 % (42.0-52.0); HEMOGLOBIN 15.7 gm/dl (14.0-18.0); MEAN CELL VOLUME 83.3 fl (81-97); MEAN CORPUSCULAR HEMOGLOBIN 28.9 pg (27-33); MEAN CORPUSCULAR HGB CONC 34.7 g/dl (32-36); MEAN PLATELET VOLUME 10.3 fl (7.4-10.4); MONO % 6.3 % (0-9); PLATELET COUNT 315 K/uL (130-400); RED BLOOD COUNT 5.44 M/uL (4.40-5.70); RED CELL DISTRIBUTION WIDTH 13.7 % (11.5-14.5); WHITE BLOOD COUNT W/O DIFF 12.9 K/uL (4.2-12.2)
[2017-06-18] MEDS: ONDANSETRON HCL IV 4 MG/2 ML VIAL IV ONE (21:48)
[2017-06-18] MEDS: MAGNESIUM HYDROXIDE/AL HYDROX 30 ML, LIDOCAINE VISC 2% 200 MG PO ONE ×2 (21:48)
[2017-06-18] MEDS: 0.9 % SODIUM CHLORIDE 1,000 ML BAG IV ONE (21:49)
[2017-06-18 22:01] LABS: ALKALINE PHOSPHATASE 97 U/L (40-129); ALT/SGPT 21 U/L (<41); AST/SGOT 30 U/L (10.0-50.0); BLOOD UREA NITROGEN 8 mg/dL (6-20); CREATININE 0.6 mg/dL (0.7-1.2); EST GLOMERULAR FILTRATION RATE > 60 mL/min; GLUCOSE,RANDOM 210 mg/dL (74-109); LIPASE 43 U/L (13-60); TOTAL PROTEIN 7.7 g/dL (6.6-8.7)
[2017-06-18 22:03] LABS: BILIRUBIN,DIRECT < 0.2 mg/dL (0-0.3)
[2017-06-18 23:06] LABS: URINE APPEARANCE CLEAR; URINE BILIRUBIN NEGATIVE (NEGATIVE); URINE BLOOD NEGATIVE (NEGATIVE); URINE COLOR YELLOW; URINE GLUCOSE (UA) NEGATIVE (NEGATIVE); URINE KETONE NEGATIVE (NEGATIVE); URINE LEUKOCYTE ESTERASE NEGATIVE (NEGATIVE); URINE NITRITE NEGATIVE (NEGATIVE); URINE PROTEIN NEGATIVE (NEGATIVE); URINE UROBILINOGEN 0.2 E.U./dL (0.20 - 1.00)
[2017-06-19] MEDS: SUCRALFATE 1 G/10 ML UD PO ONE (00:34)
--- NOTE | 2017-06-20 13:15 | CT SCAN REPORT ---
DATE: 06/18/2017 at 2213. EXAM: ABDOMEN AND PELVIS CT WITHOUT INTRAVENOUS CONTRAST. HISTORY: Acute right upper quadrant and left upper quadrant abdominal pain for three weeks. Pain with eating. Occasional vomiting. COMPARISON: None. TECHNIQUE: Contiguous axial images from the lung bases to the symphysis pubis were obtained without intravenous contrast. FINDINGS: The lung bases are clear. Evaluation of the solid abdominal visceral organs is compromised by the lack of intravenous contrast. The liver and spleen are unremarkable. The kidneys, adrenals, pancreas, and gallbladder are normal. The proximal jejunum in the left upper quadrant is mildly dilated measuring up to 3.8 cm. No wall thickening. Distal small bowel is decompressed. The colon is unremarkable. The appendix is not seen, although there are no pericecal inflammatory changes. Minimal aortic calcification without aneurysm. No free intraperitoneal fluid or adenopathy. No lytic or blastic lesion. IMPRESSION: NO ACUTE INFLAMMATORY PROCESS OF THE ABDOMEN OR PELVIS. THE MILDLY DILATED JEJUNUM IN THE LEFT UPPER QUADRANT COULD RELATE TO MILD PARALYTIC ILEUS. JOB NUMBER: [id number] MTDD
== END 2017-06-19 00:40 | disposition home or self-care (01) ==
LOC: ER 20:40
DX: K56.7 Ileus, unspecified (principal); K29.00 Acute gastritis without bleeding; R10.13 Epigastric pain; R11.2 Nausea with vomiting, unspecified
CPT/HCPCS: 99284 ×2; 96374; 96361; 83690; 85025; 80076; 80048; 81003; 74176; J2405; J7030

== ENCOUNTER 2017-06-25 07:46 | Day surgery (SDC) | payer BC ==
[2017-06-25] MEDS ORDERED: MIDAZOLAM HCL 2MG/2ML VIAL IV ONE (14:00)
[2017-06-25] MEDS ORDERED: LIDOCAINE 2% MDV (20MG/ML) 20ML VIAL IV ONE (14:00)
[2017-06-25] MEDS ORDERED: PROPOFOL 10 MG/ML VIAL IV ONE (14:00)
--- NOTE | 2017-06-26 12:40 | Operative Note ---
DATE OF SURGERY: 06/25/2017 OPERATION: ESOPHAGOGASTRODUODENOSCOPY with biopsy. PREOPERATIVE DIAGNOSIS: Nausea, vomiting, upper abdominal pain. POSTOPERATIVE DIAGNOSES: 1. Gastritis. 2. Suspected short-segment Wells's. PROCEDURE: After informed consent was obtained from the patient, he was placed in the left lateral decubitus position in the endoscopy suite, sedated and monitored by the department of anesthesia. Once sedated, a well-lubricated [id number] gastroscope was placed in the posterior oropharynx and under direct visualization passed to the proximal esophagus. The endoscope was advanced through the proximal, mid, and distal esophagus. The GE junction was irregular with a border suggestive of short-segment Wells's. The remainder of the esophagus was unremarkable. The gastric body demonstrated mild patchy erythema particularly in the body and antrum. No ulcers or mass lesions were seen. The duodenal bulb and sweep were unremarkable. J-turn views of the proximal stomach were unremarkable. The pylorus appeared unremarkable as well. Random antral biopsies and distal body biopsies were obtained. GE junction biopsies/distal esophageal biopsies were obtained. No excessive bleeding was noted. The endoscope was removed from the patient with no new findings noted. RECOMMENDATIONS: At this point I see no obvious explanation for his upper abdominal symptoms. At some point, perhaps a colonoscopy will be necessary given his persistent diarrhea and lower abdominal symptoms as well. We will await the results of pathology. As always, thank you for allowing me to participate in the healthcare of your patients. CC: Irving PEARL
--- NOTE | 2017-06-27 13:54 | ULTRASOUND REPORT ---
EXAM: ULTRASOUND ABDOMEN, COMPLETE HISTORY: ABDOMINAL PAIN WITH NAUSEA AND VOMITING. TECHNIQUE: Routine ultrasound examination of the abdomen is performed. COMPARISON: CT abdomen and pelvis without contrast dated 06/18/17. FINDINGS: The distal abdominal aorta including the bifurcation is not visualized due to overlying bowel gas. The remainder of the abdominal aorta is visualized without aneurysmal dilatation. The inferior vena cava is patent. The pancreatic tail is obscured by overlying bowel gas. The remainder of the pancreas is visualized and without focal abnormality. There is increased echogenicity and coarsening of echotexture throughout the liver consistent with steatosis demonstrated on prior CT examination. This appearance can also be seen with hepatitis and cirrhosis. No focal hepatic lesion identified. No intra nor extrahepatic biliary ductal dilatation with the common hepatic duct measuring 2.3 mm. The gallbladder is normal in appearance and there is a negative sonographic Medina sign. The spleen is not enlarged and is homogeneous in echotexture. Screening evaluation of the kidneys does not demonstrate hydronephrosis nor mass with the right kidney measuring 12.4 cm in length and the left kidney measuring 11.6 cm in length. IMPRESSION: 1. DIFFUSELY ECHOGENIC LIVER, LIKELY RELATING TO STEATOSIS DEMONSTRATED ON PRIOR CT EXAMINATION. THIS PATTERN CAN ALSO BE SEEN WITH HEPATITIS AND CIRRHOSIS. 2. NO OTHER ABNORMALITY IDENTIFIED, THOUGH THE PANCREATIC TAIL AND DISTAL ABDOMINAL AORTA ARE NOT VISUALIZED DUE TO OVERLYING BOWEL GAS. JOB NUMBER: [id number] [facility]
== END 2017-06-25 10:05 | disposition home or self-care (01) ==
LOC: HOP 07:46
PROVIDERS: ATTEND Internal Medicine Gastroenterology
DX: R10.13 Epigastric pain (principal); K29.70 Gastritis, unspecified, without bleeding; E11.9 Type 2 diabetes mellitus without complications; F32.9 Major depressive disorder, single episode, unspecified
CPT/HCPCS: 76700

== ENCOUNTER 2017-07-16 22:07 | Emergency (ER) | payer BC ==
--- NOTE | 2017-07-16 22:22 | Emergency Department Record ---
History of Present Illness - General Chief Complaint: Abdominal Pain Stated Complaint: CHEST PAIN Time Seen by Provider: 07/16/17 22:09 Source: Patient Mode of Arrival: Ambulatory Limitations: No limitations - History of Present Illness Initial Comments: 46 yo male presents to ED with an exacerbation of "gastritis" tonight. Patient reports epigastric pain and nausea as well as loose stools for 1 month. Patient reports that his symptoms have been present for about 1 month. Patient reports that he ate a lean hamburger tonight, 20 minutes later his pain increased. Patient reports that he is only able to eat apple sauce and yogurt at home. Patient has undergone CT imaging, US imaging, and EGD within the last 1 month as well, only diagnosed with gastritis and taking Prevacid BID. Patient denies previous abdominal surgery. MD Complaint: Abdominal pain Onset/Timin -: Days(s) Location: Epigastric Radiation: Other Migration to: Epigastric, Periumbilical Severity: Severe Quality: Sharp, Stabbing Consistency: Intermittent Improves With: Nothing Worsens With: Eating Context: Recent antibiotic use, Recent surgery/procedure, Other Associated Symptoms: Diarrhea, Nausea Treatments Prior to Arrival: Antacids - Related Data Allergies Allergy/AdvReac Type Severity Reaction Status Date / Time cefazolin sodium Allergy "my throat Verified 10/16/16 15:59 [From Kefzol] gets scratchy." Travel Screening - Travel/Exposure Within Last 30 Days Have you traveled within the last 30 days?: No - Travel Symptoms Symptom Screening: Diarrhea, Stomach Pain - Additional Travel Comment Additional Travel/Exposure Comment: recent dx of enteritis Review of Systems Constitutional: Denies: Chills, Fever, Malaise, Night sweats Eyes: Denies: Eye discharge, Eye pain ENT: Denies: Congestion, Ear pain, Epistaxis Respiratory: Denies: Cough, Dyspnea Cardiovascular: Denies: Chest pain, Dyspnea on exertion Endocrine: Denies: Fatigue, Heat or cold intolerance Gastrointestinal: Reports: Abdominal pain, Diarrhea, Nausea. Denies: Vomiting Genitourinary: Denies: Incontinence, Retention Musculoskeletal: Denies: Arthralgia, Back pain, Gout, Joint swelling Skin: Denies: Bruising, Change in color Neurological: Denies: Abnormal gait, Confusion, Headache, Seizure Psychiatric: Denies: Anxiety Hematological/Lymphatic: Denies: Anemia, Blood Clots Past Medical History - SOCIAL HISTORY Smoking Status: Never smoker - RESPIRATORY Hx Respiratory Disorders: No - CARDIOVASCULAR Hx Cardio Disorders: No - NEURO Hx Neuro Disorders: No - GI Hx GI Disorders: Yes Hx Abdominal Pain: Yes (epigastric) Hx Nausea/Vomiting: Yes Comment:: HASTINGS disease - Hx Genitourinary Disorders: No - ENDOCRINE Hx Endocrine Disorders: Yes Hx Diabetes: Yes Hx Thyroid Disease: Yes (not currently on medications) - MUSCULOSKELETAL Hx Musculoskeletal Disorders: Yes Hx Arthritis: Yes (back) - PSYCH Hx Psych Problems: Yes Hx Anxiety: No Hx Behavior Problems: No Hx Depression: Yes Hx Emotional Abuse: No Hx Sexual Abuse: No Hx Suicide Attempt: No - HEMATOLOGY/ONCOLOGY Hx Hematology/Oncology Disorders: No Family Medical History Hx Cancer: Mother, Brother/Sister Hx Heart Disease: Father, Grandparents *Heart Comment: father- bypass surgery x 4 first at age 38 Physical Exam - General General Appearance: Alert, Oriented x3, Cooperative, Mild distress Limitations: No limitations - Head Head exam: Atraumatic, Normocephalic, Normal inspection Head exam detail: negative: Abrasion, Contusion, Lam's sign, General tenderness, Hematoma, Laceration - Eye Eye exam: Normal appearance. negative: Conjunctival injection, Periorbital swelling, Periorbital tenderness, Scleral icterus - ENT Ear exam: negative: Auricular hematoma, Auricular trauma Nasal Exam: negative: Active bleeding, Discharge, Dried blood, Foreign body Mouth exam: negative: Drooling, Laceration, Muffled voice, Tongue elevation - Neck Neck exam: Normal inspection. negative: Meningismus, Tenderness - Respiratory Respiratory exam: Normal lung sounds bilaterally. negative: Rales, Respiratory distress, Rhonchi, Stridor - Cardiovascular Cardiovascular Exam: Regular rate, Normal rhythm, Normal heart sounds - GI/Abdominal GI/Abdominal exam: Soft. negative: Rebound, Rigid, Tenderness - Rectal Rectal exam: Deferred - exam: Deferred - Extremities Extremities exam: Normal inspection. negative: Calf tenderness, Pedal edema, Tenderness - Back Back exam: Denies: CVA tenderness (R), CVA tenderness (L) - Neurological Neurological exam: Alert, Normal gait, Oriented X3 - Psychiatric Psychiatric exam: Normal affect, Normal mood - Skin Skin exam: Normal color. negative: Abrasion Type of lesion: negative: abrasion Course Vital Signs 07/16/17 22:14 Temperature 97.8 F Pulse Rate [ 97 H Pulse Ox Probe] Respiratory 18 Rate Blood Pressure 131/92 [Left Arm] Pulse Ox 98 - Reevaluation(s) Reevaluation #1: 07/16/17 22:21 EKG: NSR 93 LAD, Normal intervals No acute ST-T wave changes Unchanged from 05/13/17 Reevaluation #2: 07/16/17 22:34 Patient has no abdominal pain on examination. Recent records reviewed: 06/18/17: CT Abdomen and Pelvis: No acute inflammatory process 06/25/17: US abdomen: Hepatic steatosis 06/25/17: EGD performed, no ulcerations, gastritis present. 10/17/16: Cardiac stress testing, (-)Stress test to 7 mets Reevaluation #3: 07/16/17 23:14 Labs reviewed, WBC 13.5, labs are otherwise grossly unremarkable for an acute process. Reevaluation #4: 07/16/17 23:27 Patient reassessed and reports significant improvement following GI cocktail, suggests symptoms are likely related to gastritis. Will have the patient follow -up with Dr. Dunn for possible HIDA scan to determine if his gallbladder may be contributing to his symptoms. Patient is otherwise well appearing with a benign abdomen, appears stable for discharge at this time. Medical Decision Making - Lab Data Result diagrams: 07/16/17 22:40 07/16/17 22:40 Disposition Disposition: Discharge Clinical Impression: Epigastric abdominal pain Disposition: Home, Self-Care Condition: (2) Stable Instructions: Abdominal Pain (ED) Additional Instructions: Return to ED if your symptoms worsen or if you have any concerns. Follow-up with Dr. Dunn next Thursday in the [facility] for further evaluation and possible HIDA scan. Referrals: Román Dunn [DOCTOR OF OSTEOPATH] - [facility] [Provider Group] Forms: Patient Portal Access Time of Disposition: 23:16 Quality - Quality Measures Quality Measures: N/A - Blood Pressure Screening Does Patient Have Any of the Following: No Blood Pressure Classification: Pre-Hypertensive BP Reading Systolic Measurement: 144 Diastolic Measurement: 86 Screening for High Blood Pressure: < Pre-Hypertensive BP, F/U Documented > [ G8950] Pre-Hypertensive Follow-up Interventions: Referral to alternative/primary care provider.
[2017-07-16] MEDS ORDERED: SUCRALFATE 1 G/10 ML UD PO ONE (22:29)
[2017-07-16 22:48] LABS: BASO % 0.4 % (0-6); EOS % 0.8 % (0-6); GRAN % 65.5 % (47-80); HEMATOCRIT 43.2 % (42.0-52.0); HEMOGLOBIN 14.7 gm/dl (14.0-18.0); LYMPH % 27.2 % (16-45); MEAN CELL VOLUME 83.6 fl (81-97); MEAN CORPUSCULAR HEMOGLOBIN 28.4 pg (27-33); MEAN PLATELET VOLUME 10.5 fl (7.4-10.4); MONO % 6.1 % (0-9); PLATELET COUNT 295 K/uL (130-400); RED BLOOD COUNT 5.17 M/uL (4.40-5.70); RED CELL DISTRIBUTION WIDTH 14.1 % (11.5-14.5); WHITE BLOOD COUNT W/O DIFF 13.5 K/uL (4.2-12.2)
[2017-07-16] MEDS ORDERED: MAGNESIUM HYDROXIDE/AL HYDROX 30 ML, LIDOCAINE VISC 2% 200 MG PO ONE ×2 (23:05)
[2017-07-16 23:06] LABS: ALBUMIN 3.8 g/dL (4.0-5.0); ALKALINE PHOSPHATASE 110 U/L (40-129); ALT/SGPT 19 U/L (<41); AST/SGOT 26 U/L (10.0-50.0); BLOOD UREA NITROGEN 10 mg/dL (6-20); CREATININE 0.6 mg/dL (0.7-1.2); EST GLOMERULAR FILTRATION RATE > 60 mL/min; GLUCOSE,RANDOM 216 mg/dL (74-109); LIPASE 44 U/L (13-60); TOTAL PROTEIN 7.5 g/dL (6.6-8.7)
== END 2017-07-16 23:33 | disposition home or self-care (01) ==
LOC: ER 22:07
DX: R10.13 Epigastric pain (principal); R19.7 Diarrhea, unspecified; R11.0 Nausea; R07.9 Chest pain, unspecified
CPT/HCPCS: 80053; 83690; 85025; 99284

== ENCOUNTER 2017-08-27 22:51 | Emergency (ER) | payer BC ==
[2017-08-27] MEDS ORDERED: MAGNESIUM HYDROXIDE/AL HYDROX 30 ML, LIDOCAINE VISC 2% 200 MG PO ONE ×2 (23:00)
--- NOTE | 2017-08-27 23:09 | Emergency Department Record ---
History of Present Illness - General Chief Complaint: Abdominal Pain Stated Complaint: ABD PAIN Time Seen by Provider: 08/27/17 22:53 Source: Patient Mode of Arrival: Ambulatory Limitations: No limitations - History of Present Illness Initial Comments: 46 yo male returns to ED for evaluation of his chronic abdominal pain symptoms and "difficulty burping". Patient denies nausea or vomiting, reports a history for persistent loose stools. Patient reports that he is currently awaiting evaluation via HIDA scan for further evaluation of his gallbladder as previous US imaging performed in June was negative. Patient denies chest pain, fevers , chills, or recent illness. MD Complaint: Abdominal pain Onset/Timin -: Hour(s) Location: Diffuse, Epigastric Quality: Fullness Consistency: Constant Improves With: Nothing Worsens With: Movement Associated Symptoms: Nausea - Related Data Home Medications Medication Instructions Recorded Confirmed Last Taken Dulaglutide [Trulicity] 0.5 ml SC WEEKLY 08/27/17 08/27/17 Unknown Allergies Allergy/AdvReac Type Severity Reaction Status Date / Time cefazolin sodium Allergy "my throat Verified 10/16/16 15:59 [From Kefzol] gets scratchy." Travel Screening - Travel/Exposure Within Last 30 Days Have you traveled within the last 30 days?: No - Travel Symptoms Symptom Screening: None Review of Systems Constitutional: Denies: Chills, Fever, Malaise, Night sweats Eyes: Denies: Eye discharge, Eye pain ENT: Denies: Congestion, Ear pain, Epistaxis Respiratory: Denies: Cough, Dyspnea Cardiovascular: Denies: Chest pain, Dyspnea on exertion Endocrine: Denies: Fatigue, Heat or cold intolerance Gastrointestinal: Reports: Abdominal pain. Denies: Nausea, Vomiting Genitourinary: Denies: Incontinence, Retention Musculoskeletal: Denies: Arthralgia, Back pain, Gout, Joint swelling Skin: Denies: Bruising, Change in color Neurological: Denies: Abnormal gait, Confusion, Headache, Seizure Psychiatric: Denies: Anxiety Hematological/Lymphatic: Denies: Anemia, Blood Clots Past Medical History - SOCIAL HISTORY Smoking Status: Never smoker - RESPIRATORY Hx Respiratory Disorders: No - CARDIOVASCULAR Hx Cardio Disorders: No - NEURO Hx Neuro Disorders: No - GI Hx GI Disorders: Yes Hx Abdominal Pain: Yes (epigastric; gastritis) Hx Nausea/Vomiting: Yes Comment:: HASTINGS disease - Hx Genitourinary Disorders: No - ENDOCRINE Hx Endocrine Disorders: Yes Hx Diabetes: Yes Hx Thyroid Disease: Yes (not currently on medications) - MUSCULOSKELETAL Hx Musculoskeletal Disorders: Yes Hx Arthritis: Yes (back) - PSYCH Hx Psych Problems: Yes Hx Anxiety: No Hx Behavior Problems: No Hx Depression: Yes Hx Emotional Abuse: No Hx Sexual Abuse: No Hx Suicide Attempt: No - HEMATOLOGY/ONCOLOGY Hx Hematology/Oncology Disorders: No Family Medical History Any Significant Family History?: Yes Hx Cancer: Mother, Brother/Sister Hx Heart Disease: Father, Grandparents *Heart Comment: father- bypass surgery x 4 first at age 38 Physical Exam - General General Appearance: Alert, Oriented x3, Cooperative, No acute distress, Anxious Limitations: No limitations - Head Head exam: Atraumatic, Normocephalic, Normal inspection Head exam detail: negative: Abrasion, Contusion, Lam's sign, General tenderness, Hematoma, Laceration - Eye Eye exam: Normal appearance. negative: Conjunctival injection, Periorbital swelling, Periorbital tenderness, Scleral icterus - ENT Ear exam: negative: Auricular hematoma, Auricular trauma Nasal Exam: negative: Active bleeding, Discharge, Dried blood, Foreign body Mouth exam: negative: Drooling, Laceration, Muffled voice, Tongue elevation - Neck Neck exam: Normal inspection. negative: Meningismus, Tenderness - Respiratory Respiratory exam: Normal lung sounds bilaterally. negative: Rales, Respiratory distress, Rhonchi, Stridor - Cardiovascular Cardiovascular Exam: Regular rate, Normal rhythm, Normal heart sounds - GI/Abdominal GI/Abdominal exam: Soft, Tenderness (Mild TTP epigastric region on examination, no rebound, guarding, or rigidity is present on examination.). negative: Rebound, Rigid - Rectal Rectal exam: Deferred - exam: Deferred - Extremities Extremities exam: Normal inspection. negative: Pedal edema, Tenderness - Back Back exam: Denies: CVA tenderness (R), CVA tenderness (L) - Neurological Neurological exam: Alert, Normal gait, Oriented X3 - Psychiatric Psychiatric exam: Anxious - Skin Skin exam: Normal color. negative: Abrasion Type of lesion: negative: abrasion Course Vital Signs 08/27/17 22:58 Temperature 98.0 F Pulse Rate 99 H Respiratory 18 Rate Blood Pressure 130/87 Pulse Ox 99 - Reevaluation(s) Reevaluation #1: 08/27/17 23:08 Previous records reviewed: 06/18/17: CT Abdomen and Pelvis: No acute process 06/25/17: US abdomen, Steatosis, no acute process 06/25/17: EGD: Gastritis Reevaluation #2: 08/27/17 23:55 Labs reviewed and are grossly unremarkable for an acute process. Patient reassessed and reports improvement in his pain symptoms, appears stable for discharge with outpatient follow-up. Medical Decision Making - Lab Data Result diagrams: 08/27/17 23:18 08/27/17 23:18 Disposition Disposition: Discharge Clinical Impression: Abdominal pain Qualifiers: Abdominal location: epigastric Qualified Code(s): R10.13 - Epigastric pain Disposition: Home, Self-Care Condition: (2) Stable Instructions: Abdominal Pain (ED) Additional Instructions: Return to ED if your symptoms worsen or if you have any concerns. Follow-up with your family doctor in as directed in 3-5 days as directed. Forms: Patient Portal Access Time of Disposition: 23:56 Quality - Quality Measures Quality Measures: N/A - Blood Pressure Screening Does Patient Have Any of the Following: No Blood Pressure Classification: Pre-Hypertensive BP Reading Systolic Measurement: 130 Diastolic Measurement: 87 Screening for High Blood Pressure: < Pre-Hypertensive BP, F/U Documented > [ G8950] Pre-Hypertensive Follow-up Interventions: Referral to alternative/primary care provider.
[2017-08-27 23:23] LABS: BASO % 0.5 % (0-6); EOS % 1.4 % (0-6); HEMATOCRIT 42.4 % (42.0-52.0); HEMOGLOBIN 14.5 gm/dl (14.0-18.0); LYMPH % 32.8 % (16-45); MEAN CELL VOLUME 84.1 fl (81-97); MEAN CORPUSCULAR HEMOGLOBIN 28.8 pg (27-33); MEAN CORPUSCULAR HGB CONC 34.2 g/dl (32-36); MEAN PLATELET VOLUME 9.9 fl (7.4-10.4); MONO % 6.3 % (0-9); PLATELET COUNT 284 K/uL (130-400); RED BLOOD COUNT 5.04 M/uL (4.40-5.70); RED CELL DISTRIBUTION WIDTH 13.7 % (11.5-14.5); WHITE BLOOD COUNT W/O DIFF 10.6 K/uL (4.2-12.2)
[2017-08-27 23:51] LABS: ALKALINE PHOSPHATASE 103 U/L (40-129); ALT/SGPT 22 U/L (<41); AST/SGOT 35 U/L (10.0-50.0); BLOOD UREA NITROGEN 4 mg/dL (6-20)
[2017-08-27 23:52] LABS: ALB/GLOB RATIO 1.1 (1.1-1.8); CREATININE 0.6 mg/dL (0.7-1.2); EST GLOMERULAR FILTRATION RATE > 60 mL/min; GLUCOSE,RANDOM 241 mg/dL (74-109); LIPASE 29 U/L (13-60); TOTAL PROTEIN 7.8 g/dL (6.6-8.7)
--- NOTE | 2017-08-28 00:08 | Emergency Department Record ---
History of Present Illness - General Chief Complaint: Abdominal Pain Stated Complaint: ABD PAIN Time Seen by Provider: 08/27/17 22:53 Source: Patient Mode of Arrival: Ambulatory Limitations: No limitations - History of Present Illness MD Complaint: Abdominal pain Onset/Timin -: Hour(s) Location: Diffuse, Epigastric Quality: Fullness Consistency: Constant Improves With: Nothing Worsens With: Movement Associated Symptoms: Nausea - Related Data Home Medications Medication Instructions Recorded Confirmed Last Taken Dulaglutide [Trulicity] 0.5 ml SC WEEKLY 08/27/17 08/27/17 Unknown Previous Rx's Medication Instructions Recorded Sucralfate [Carafate] 1 g PO QID #120 [facility] 08/28/17 Allergies Allergy/AdvReac Type Severity Reaction Status Date / Time cefazolin sodium Allergy "my throat Verified 10/16/16 15:59 [From Kefzol] gets scratchy." Travel Screening - Travel/Exposure Within Last 30 Days Have you traveled within the last 30 days?: No - Travel Symptoms Symptom Screening: None Review of Systems Constitutional: Denies: Chills, Fever, Malaise, Night sweats Eyes: Denies: Eye discharge, Eye pain ENT: Denies: Congestion, Ear pain, Epistaxis Respiratory: Denies: Cough, Dyspnea Cardiovascular: Denies: Chest pain, Dyspnea on exertion Endocrine: Denies: Fatigue, Heat or cold intolerance Gastrointestinal: Reports: Abdominal pain. Denies: Nausea, Vomiting Genitourinary: Denies: Incontinence, Retention Musculoskeletal: Denies: Arthralgia, Back pain, Gout, Joint swelling Skin: Denies: Bruising, Change in color Neurological: Denies: Abnormal gait, Confusion, Headache, Seizure Psychiatric: Denies: Anxiety Hematological/Lymphatic: Denies: Anemia, Blood Clots Past Medical History - SOCIAL HISTORY Smoking Status: Never smoker - RESPIRATORY Hx Respiratory Disorders: No - CARDIOVASCULAR Hx Cardio Disorders: No - NEURO Hx Neuro Disorders: No - GI Hx GI Disorders: Yes Hx Abdominal Pain: Yes (epigastric; gastritis) Hx Nausea/Vomiting: Yes Comment:: HATSINGS disease - Hx Genitourinary Disorders: No - ENDOCRINE Hx Endocrine Disorders: Yes Hx Diabetes: Yes Hx Thyroid Disease: Yes (not currently on medications) - MUSCULOSKELETAL Hx Musculoskeletal Disorders: Yes Hx Arthritis: Yes (back) - PSYCH Hx Psych Problems: Yes Hx Anxiety: No Hx Behavior Problems: No Hx Depression: Yes Hx Emotional Abuse: No Hx Sexual Abuse: No Hx Suicide Attempt: No - HEMATOLOGY/ONCOLOGY Hx Hematology/Oncology Disorders: No Family Medical History Any Significant Family History?: Yes Hx Cancer: Mother, Brother/Sister Hx Heart Disease: Father, Grandparents *Heart Comment: father- bypass surgery x 4 first at age 38 Physical Exam - General Limitations: No limitations Course Vital Signs 08/27/17 22:58 Temperature 98.0 F Pulse Rate 99 H Respiratory 18 Rate Blood Pressure 130/87 Pulse Ox 99 Medical Decision Making - Lab Data Result diagrams: 08/27/17 23:18 08/27/17 23:18 Lab Results 08/27/17 08/27/17 Range/Units 23:18 23:18 WBC 10.6 (4.2-12.2) K/uL RBC 5.04 (4.40-5.70) M/uL Hgb 14.5 (14.0-18.0) gm/dl Hct 42.4 (42.0-52.0) % MCV 84.1 (81-97) fl MCH 28.8 (27-33) pg MCHC 34.2 (32-36) g/dl RDW 13.7 (11.5-14.5) % Plt Count 284 (130-400) K/uL MPV 9.9 (7.4-10.4) fl Gran % 59.0 (47-80) % Lymphocytes % 32.8 (16-45) % Monocytes % 6.3 (0-9) % Eosinophils % 1.4 (0-6) % Basophils % 0.5 (0-6) % Sodium 135 L (136-145) mmol/L Potassium 4.0 (3.4-4.5) mmol/L Chloride 98 (98-107) mmol/L Carbon Dioxide 21.0 L (22-29) mmol/L Anion Gap 16.0 (7-16) BUN 4 L (6-20) mg/dL Creatinine 0.6 L (0.7-1.2) mg/dL Estimated GFR > 60 mL/min Random Glucose 241 H (74-109) mg/dL Calcium 9.2 (8.6-10.0) mg/dL Total Bilirubin 0.60 (0.2-1.0) mg/dL AST 35 (10.0-50.0) U/L ALT 22 (<41) U/L Alkaline Phosphatase 103 (40-129) U/L Total Protein 7.8 (6.6-8.7) g/dL Albumin 4.0 (4.0-5.0) g/dL Globulin 3.8 (1.4-4.8) gm/dL Albumin/Globulin Ratio 1.1 (1.1-1.8) Lipase 29 (13-60) U/L Disposition Disposition: Discharge Clinical Impression: Abdominal pain Qualifiers: Abdominal location: epigastric Qualified Code(s): R10.13 - Epigastric pain Disposition: Home, Self-Care Condition: (2) Stable Instructions: Abdominal Pain (ED) Additional Instructions: Return to ED if your symptoms worsen or if you have any concerns. Follow-up with your family doctor in as directed in 3-5 days as directed. Carafate as directed. Prescriptions: Sucralfate [Carafate] 1 g PO QID #120 [facility] [email or web address] Forms: Patient Portal Access Time of Disposition: 00:08 Quality - Blood Pressure Screening Does Patient Have Any of the Following: No Blood Pressure Classification: Pre-Hypertensive BP Reading Systolic Measurement: 130 Diastolic Measurement: 87 Screening for High Blood Pressure: < Pre-Hypertensive BP, F/U Documented > [ G8950]
== END 2017-08-28 00:15 | disposition home or self-care (01) ==
LOC: ER 22:51
DX: R10.13 Epigastric pain (principal); R11.0 Nausea
CPT/HCPCS: 80053; 83690; 85025; 99283; 99284

== ENCOUNTER 2017-11-26 06:47 | Emergency (ER) | payer BC ==
--- NOTE | 2017-11-26 07:14 | Emergency Department Record ---
History of Present Illness - General Chief Complaint: Abdominal Pain Stated Complaint: ABDOMINAL PAIN Time Seen by Provider: 11/26/17 06:59 Source: Patient Mode of Arrival: Ambulatory Limitations: No limitations - History of Present Illness Initial Comments: The patient is here due to worsening of his chronic abdominal pain. The patient had gastric bypass surgery 2 months ago and has had problems ever since. He has had persistent pain and nausea and difficulty eating. The patient did have an EGD performed about a month ago by his surgeon due to problems eating and reports he may have been dilated. Now for the last 8-10 hours his abdominal pain has worsened. He is concerned he may have tore something since his pain is worse. There is no reported vomiting, diarrhea or fever. MD Complaint: Abdominal pain Onset/Timin -: Month(s) Migration to: Periumbilical Severity: Moderate Consistency: Constant Improves With: Nothing Worsens With: Nothing Associated Symptoms: Denies other symptoms - Related Data Allergies Allergy/AdvReac Type Severity Reaction Status Date / Time cefazolin sodium Allergy "my throat Verified 10/16/16 15:59 [From Kefzol] gets scratchy." Travel Screening - Travel/Exposure Within Last 30 Days Have you traveled within the last 30 days?: No - Travel/Exposure Within Last Year Have you traveled outside the [place] in the last year?: No - Additonal Travel Details Have you been exposed to anyone with a communicable illness?: No - Travel Symptoms Symptom Screening: None Review of Systems Constitutional: Denies: Chills, Fever Eyes: Denies: Eye discharge ENT: Denies: Congestion Respiratory: Denies: Cough, Dyspnea Past Medical History - SOCIAL HISTORY Smoking Status: Never smoker Alcohol Use: None Drug Use: None - RESPIRATORY Hx Respiratory Disorders: No - CARDIOVASCULAR Hx Cardio Disorders: No - NEURO Hx Neuro Disorders: No - GI Hx GI Disorders: Yes Hx Abdominal Pain: Yes (epigastric; gastritis) Hx Nausea/Vomiting: Yes Comment:: HASTINGS disease - Hx Genitourinary Disorders: No - ENDOCRINE Hx Endocrine Disorders: Yes Hx Diabetes: Yes Hx Thyroid Disease: Yes - MUSCULOSKELETAL Hx Musculoskeletal Disorders: Yes Hx Arthritis: Yes (back) - PSYCH Hx Psych Problems: Yes Hx Anxiety: No Hx Behavior Problems: No Hx Depression: Yes Hx Emotional Abuse: No Hx Sexual Abuse: No Hx Suicide Attempt: No - HEMATOLOGY/ONCOLOGY Hx Hematology/Oncology Disorders: No Family Medical History Any Significant Family History?: Yes Hx Cancer: Mother, Brother/Sister Hx Heart Disease: Father, Grandparents *Heart Comment: father- bypass surgery x 4 first at age 38 Physical Exam - General General Appearance: Alert, Oriented x3, Cooperative, No acute distress - Head Head exam: Atraumatic, Normocephalic, Normal inspection - Eye Eye exam: Normal appearance, PERRL - Respiratory Respiratory exam: Normal lung sounds bilaterally. negative: Respiratory distress - Cardiovascular Cardiovascular Exam: Regular rate, Normal rhythm, Normal heart sounds - GI/Abdominal GI/Abdominal exam: Soft, Normal bowel sounds, Tenderness (There is epigastric and mid-abdominal tenderness.). negative: Guarding, Hernia, Rebound - Extremities Extremities exam: Normal inspection, Full ROM, Normal capillary refill. negative: Tenderness - Neurological Neurological exam: Alert, Normal gait. negative: Abnormal gait, Motor sensory deficit Course Vital Signs 11/26/17 06:51 Temperature 97.9 F Pulse Rate 96 H Respiratory 20 Rate Blood Pressure 125/79 Pulse Ox 98 - Reevaluation(s) Reevaluation #1: The patient is resting comfortably. He denies any new problems and states the pain is not bad at this time and he is declining any pain medicines. We are waiting on the CT read at this time. 11/26/17 09:00 Reevaluation #2: I explained to the patient that his workup is basically normal for us and the CT does not demonstrate any acute abnormalities. He is to take Tylenol for pain and see his surgeon JERSEY. 11/26/17 09:49 Medical Decision Making - Data Complexity MDM Data: Labs Ordered and/or Reviewed, X-Ray Ordered and/or Reviewed - Lab Data Result diagrams: 11/26/17 06:58 11/26/17 06:58 - Radiology Data Radiology results: Report reviewed (CT: Neg for any acute changes.) Disposition Disposition: Discharge Clinical Impression: Abdominal pain Qualifiers: Abdominal location: unspecified location Qualified Code(s): R10.9 - Unspecified abdominal pain Disposition: Home, Self-Care Condition: (2) Stable Instructions: Abdominal Pain (ED) Additional Instructions: Please take Tylenol for pain and please see your Surgeon JRESEY. Return to the ER for any worsening issues or problems. Forms: Patient Portal Access Time of Disposition: 09:51 Quality - Quality Measures Quality Measures: N/A - Blood Pressure Screening View Details: Yes Does Patient Have Any of the Following: No Blood Pressure Classification: Pre-Hypertensive BP Reading Systolic Measurement: 117 Diastolic Measurement: 80 Screening for High Blood Pressure: < Pre-Hypertensive BP, F/U Documented > [ G8950] Pre-Hypertensive Follow-up Interventions: Referral to alternative/primary care provider.
[2017-11-26 07:22] LABS: BASO % 0.4 % (0-6); EOS % 1.1 % (0-6); GRAN % 65.3 % (47-80); HEMATOCRIT 45.4 % (42.0-52.0); HEMOGLOBIN 15.1 gm/dl (14.0-18.0); LYMPH % 27.6 % (16-45); MEAN CELL VOLUME 83.8 fl (81-97); MEAN CORPUSCULAR HEMOGLOBIN 27.9 pg (27-33); MEAN CORPUSCULAR HGB CONC 33.3 g/dl (32-36); MEAN PLATELET VOLUME 10.6 fl (7.4-10.4); MONO % 5.6 % (0-9); PLATELET COUNT 347 K/uL (130-400); RED BLOOD COUNT 5.42 M/uL (4.40-5.70); RED CELL DISTRIBUTION WIDTH 14.3 % (11.5-14.5); URINE APPEARANCE CLEAR; URINE BILIRUBIN SMALL (NEGATIVE); URINE BLOOD NEGATIVE (NEGATIVE); URINE COLOR YELLOW; URINE GLUCOSE (UA) NEGATIVE (NEGATIVE); URINE KETONE TRACE (NEGATIVE); URINE LEUKOCYTE ESTERASE NEGATIVE (NEGATIVE); URINE NITRITE NEGATIVE (NEGATIVE); URINE PROTEIN NEGATIVE (NEGATIVE); WHITE BLOOD COUNT W/O DIFF 12.1 K/uL (4.2-12.2)
[2017-11-26] MEDS: ONDANSETRON HCL IV 4 MG/2 ML VIAL IV ONE (07:24)
[2017-11-26] MEDS: SODIUM CHLORIDE 0.9% 500 ML IV ONE (07:24)
[2017-11-26 07:37] LABS: BLOOD UREA NITROGEN 9 mg/dL (6-20); CREATININE 0.6 mg/dL (0.7-1.2); EST GLOMERULAR FILTRATION RATE > 60 mL/min
[2017-11-26 07:40] LABS: GLUCOSE,RANDOM 169 mg/dL (74-109)
[2017-11-26 07:42] LABS: ALT/SGPT 12 U/L (<41); AST/SGOT 19 U/L (10.0-50.0)
[2017-11-26 07:43] LABS: ALKALINE PHOSPHATASE 93 U/L (40-129); BILIRUBIN,DIRECT < 0.2 mg/dL (0-0.3); LIPASE 35 U/L (13-60)
[2017-11-26] MEDS ORDERED: 0.9 % SODIUM CHLORIDE 1,000 ML BAG IV ONE (08:24)
--- NOTE | 2017-11-27 10:35 | CT SCAN REPORT ---
EXAM: EMERGENCY CT SCAN OF THE ABDOMEN AND PELVIS WITH CONTRAST HISTORY: GASTRIC BYPASS SURGERY 09/16/17. CONSTANT EPIGASTRIC PAIN CURRENTLY, WORSE AFTER EATING. TECHNIQUE: Axial CT scan of the abdomen and pelvis was obtained following the intravenous administration of 100 ml of Omnipaque 300 as the IV contrast. No oral contrast was utilized at the referring physician's request. Comparison: Prior CT abdomen and pelvis 06/18/17. FINDINGS: The gallbladder is somewhat distended, but no calcified gallstones are seen and no adjacent cholecystic inflammatory type change is seen to suggest cholecystitis currently. There are extensive postoperative findings now seen associated with the stomach , new since the prior exam and presumably related to the history of gastric bypass surgery performed in the interval. Some new suture in the jejunum as well again presumably related to the gastric bypass procedure. No definite hepatic, splenic, adrenal, pancreatic, or renal mass identified. There is some linear metallic density along the anterior margin of the wall of the distal stomach which is presumably just related to the gastric bypass surgical procedure as well and correlation with the specifics of the surgical procedure itself is suggested. No appendicitis identified. No free intraperitoneal air or free intraperitoneal fluid evident. Degenerative disk disease at the lumbosacral interspace. IMPRESSION: 1. NEW EXTENSIVE POSTOPERATIVE FINDINGS INVOLVING THE STOMACH CONSISTENT WITH GASTRIC BYPASS SURGERY PROBABLY WITH AN ANTERIOR GASTROJEJUNOSTOMY. THERE IS ALSO POSTOPERATIVE CHANGE IN THE JEJUNUM MORE DISTALLY PRESUMABLY RELATED TO THE PROCEDURE. SOME APPARENT LINEAR METALLIC DENSITY ALONG THE ANTERIOR WALL OF THE DISTAL STOMACH IS PRESUMABLY JUST SOME ADDITIONAL POSTOPERATIVE CHANGE AND CORRELATION WITH THE SURGICAL PROCEDURE ITSELF IS SUGGESTED. 2. DEGENERATIVE DISK DISEASE AT THE LUMBOSACRAL INTERSPACE. 3. NO FREE AIR OR FREE FLUID EVIDENT. 4. SOMEWHAT DISTENDED GALLBLADDER, BUT NO ADDITIONAL FINDINGS TO SUGGEST ACUTE CHOLECYSTITIS. JOB NUMBER: [id number] [facility]
== END 2017-11-26 10:07 | disposition home or self-care (01) ==
LOC: ER 06:47
DX: R10.33 Periumbilical pain (principal); R11.0 Nausea; E11.9 Type 2 diabetes mellitus without complications; Z79.84 Long term (current) use of oral hypoglycemic drugs
CPT/HCPCS: 74177; 80048; 80076; 81003; 83690; 85025; 96374; 99284; J2405

== ENCOUNTER 2018-01-27 12:28 | Emergency (ER) | payer BC ==
--- NOTE | 2018-01-27 13:01 | Emergency Department Record ---
History of Present Illness - General Chief Complaint: Abdominal Pain Stated Complaint: epigastric distress Time Seen by Provider: 01/27/18 12:54 Source: Patient, RN notes reviewed Mode of Arrival: Ambulatory - History of Present Illness Initial Comments: surgery 9 days ago and he had exploratory lap done looking at his bariatric surgery site September 2017 and they removed scar tissue 9 days ago and also unkinked his bowel. This morning had a hard time swallowing water and burping alot this am since swallowing water. Ate fruit at 9 am today and vomited that up. He called his surgeon Dr Janice Waldrop in [facility] [phone]. Patient had a andrade en Yea type surgury Onset/Timin -: Hour(s) Location: Epigastric Severity: Moderate Severity scale (1-10): 3 Quality: Other Consistency: Constant Improves With: Nothing Worsens With: Eating Context: Recent surgery/procedure Associated Symptoms: Other - Related Data Previous Rx's Medication Instructions Recorded Oxycodone HCl/Acetaminophen 1 tab PO Q6H PRN #10 tab 01/27/18 [Percocet 5mg/325mg] Sucralfate [Carafate] 1 gm PO QID #30 tablet 01/27/18 Allergies Allergy/AdvReac Type Severity Reaction Status Date / Time cefazolin sodium Allergy "my throat Verified 01/27/18 12:43 [From Kefzol] gets scratchy." Travel Screening - Travel/Exposure Within Last 30 Days Have you traveled within the last 30 days?: No - Travel/Exposure Within Last Year Have you traveled outside the [place] in the last year?: No - Additonal Travel Details Have you been exposed to anyone with a communicable illness?: No - Travel Symptoms Symptom Screening: None Review of Systems Reviewed: No additional complaints except as noted below Constitutional: Reports: As per HPI. Denies: Chills, Fever, Malaise, Night sweats, Weakness, Weight change Eyes: Reports: As per HPI. Denies: Eye discharge, Eye pain, Photophobia, Vision change ENT: Reports: As per HPI. Denies: Congestion, Dental pain, Ear pain, Epistaxis , Hearing loss, Throat pain Respiratory: Reports: As per HPI. Denies: Cough, Dyspnea, Hemoptysis, Stridor, Wheezes Cardiovascular: Reports: As per HPI. Denies: Arrhythmia, Chest pain, Dyspnea on exertion, Edema, Murmurs, Orthopnea, Palpitations, Paroxysmal nocturnal dyspnea, Rheumatic Fever, Syncope Endocrine: Reports: As per HPI. Denies: Fatigue, Heat or cold intolerance, Polydipsia, Polyuria Gastrointestinal: Reports: As per HPI, Abdominal pain, Vomiting. Denies: Constipation, Diarrhea, Hematemesis, Hematochezia, Melena, Nausea Genitourinary: Reports: As per HPI. Denies: Dysuria, Frequency, Hematuria, Incontinence, Retention, Testicular pain, Testicular mass, Urgency Musculoskeletal: Reports: As per HPI. Denies: Arthralgia, Back pain, Gout, Joint swelling, Myalgia, Neck pain Skin: Reports: As per HPI. Denies: Bruising, Change in color, Change in hair/ nails, Lesions, Pruritus, Rash Neurological: Reports: As per HPI. Denies: Abnormal gait, Confusion, Headache, Numbness, Paresthesias, Seizure, Tingling, Tremors, Vertigo, Weakness Psychiatric: Reports: As per HPI. Denies: Anxiety, Auditory hallucinations, Depression, Homicidal thoughts, Suicidal thoughts, Visual hallucinations Hematological/Lymphatic: Reports: As per HPI. Denies: Anemia, Blood Clots, Easy bleeding, Easy bruising, Swollen glands Past Medical History - SOCIAL HISTORY Smoking Status: Never smoker Alcohol Use: None Drug Use: None - RESPIRATORY Hx Respiratory Disorders: No - CARDIOVASCULAR Hx Cardio Disorders: No - NEURO Hx Neuro Disorders: No - GI Hx GI Disorders: Yes Hx Abdominal Pain: Yes (epigastric; gastritis) Hx Nausea/Vomiting: Yes Comment:: HASTINGS disease - Hx Genitourinary Disorders: No - ENDOCRINE Hx Endocrine Disorders: Yes Hx Diabetes: Yes Hx Thyroid Disease: Yes - MUSCULOSKELETAL Hx Musculoskeletal Disorders: Yes Hx Arthritis: Yes (back) - PSYCH Hx Psych Problems: Yes Hx Anxiety: No Hx Behavior Problems: No Hx Depression: Yes Hx Emotional Abuse: No Hx Sexual Abuse: No Hx Suicide Attempt: No - HEMATOLOGY/ONCOLOGY Hx Hematology/Oncology Disorders: No Family Medical History Any Significant Family History?: Yes Hx Cancer: Mother, Brother/Sister Hx Heart Disease: Father, Grandparents *Heart Comment: father- bypass surgery x 4 first at age 38 Physical Exam - General General Appearance: Alert, Oriented x3, Cooperative, Mild distress - Head Head exam: Normal inspection - Eye Eye exam: Normal appearance, PERRL Pupils: Normal accommodation - ENT ENT exam: Normal exam, Mucous membranes moist, Normal external ear exam, Normal orophraynx, TM's normal bilaterally Ear exam: Normal external inspection. negative: External canal tenderness Nasal Exam: Normal inspection. negative: Discharge, Sinus tenderness Mouth exam: Normal external inspection, Tongue normal Teeth exam: Normal inspection. negative: Dental caries Throat exam: Normal inspection. negative: Tonsillar erythema, Tonsillar exudate - Neck Neck exam: Normal inspection, Full ROM. negative: Tenderness - Respiratory Respiratory exam: Normal lung sounds bilaterally. negative: Respiratory distress - Cardiovascular Cardiovascular Exam: Regular rate, Normal rhythm, Normal heart sounds - GI/Abdominal GI/Abdominal exam: Soft, Normal bowel sounds, Tenderness (epigastric pain) - Rectal Rectal exam: Deferred - exam: Deferred - Extremities Extremities exam: Normal inspection, Full ROM, Normal capillary refill. negative: Tenderness - Back Back exam: Reports: Normal inspection, Full ROM. Denies: Muscle spasm, Rash noted, Tenderness - Neurological Neurological exam: Alert, Normal gait, Oriented X3, Reflexes normal - Psychiatric Psychiatric exam: Normal affect, Normal mood - Skin Skin exam: Dry, Intact, Normal color, Warm Course Vital Signs 01/27/18 12:45 Temperature 98.7 F Pulse Rate 86 Respiratory 18 Rate Blood Pressure 115/77 Pulse Ox 97 - Reevaluation(s) Reevaluation #1: patient slightly better and reviewed xrays and lab work with the patient 01/27/18 14:48 Medical Decision Making - Data Complexity MDM Data: Labs Ordered and/or Reviewed (wbc 11,900), X-Ray Ordered and/or Reviewed (two air fluid levels) - Lab Data Result diagrams: 01/27/18 13:10 01/27/18 13:10 Disposition Clinical Impression: Gastritis Qualifiers: Gastritis type: superficial Chronicity: acute Gastritis bleeding: without bleeding Qualified Code(s): K29.00 - Acute gastritis without bleeding Abdominal pain Qualifiers: Abdominal location: epigastric Qualified Code(s): R10.13 - Epigastric pain Abdominal wall strain Qualifiers: Encounter type: initial encounter Qualified Code(s): S39.011A - Strain of muscle, fascia and tendon of abdomen, initial encounter Disposition: Home, Self-Care Condition: (1) Good Instructions: Gastritis (ED), Muscle Strain (ED) Additional Instructions: follow up with surgeon as scheduled next tu sooner if worse Prescriptions: Oxycodone HCl/Acetaminophen [Percocet 5mg/325mg] 1 tab PO Q6H PRN #10 tab PRN Reason: Analgesia Sucralfate [Carafate] 1 gm PO QID #30 tablet Forms: Patient Portal Access Time of Disposition: 15:00 Quality - Quality Measures Quality Measures: N/A - Blood Pressure Screening Does Patient Have Any of the Following: No Blood Pressure Classification: Normal BP Reading Systolic Measurement: 115 Diastolic Measurement: 77 Screening for High Blood Pressure: < Normal BP, F/U Not Required > [G8783]
[2018-01-27] MEDS ORDERED: 0.9 % SODIUM CHLORIDE 1000ML 1,000 ML IV PRN (13:05)
[2018-01-27 13:24] LABS: BASO % 0.3 % (0-6); GRAN % 71.6 % (47-80); HEMOGLOBIN 14.7 gm/dl (14.0-18.0); LYMPH % 20.8 % (16-45); MEAN CELL VOLUME 85.3 fl (81-97); MEAN CORPUSCULAR HEMOGLOBIN 28.5 pg (27-33); MEAN CORPUSCULAR HGB CONC 33.4 g/dl (32-36); MEAN PLATELET VOLUME 10.4 fl (7.4-10.4); MONO % 6.3 % (0-9); PLATELET COUNT 312 K/uL (130-400); RED BLOOD COUNT 5.16 M/uL (4.40-5.70); RED CELL DISTRIBUTION WIDTH 14.3 % (11.5-14.5); URINE APPEARANCE CLEAR; URINE BILIRUBIN SMALL (NEGATIVE); URINE BLOOD NEGATIVE (NEGATIVE); URINE COLOR YELLOW; URINE GLUCOSE (UA) NEGATIVE (NEGATIVE); URINE KETONE TRACE (NEGATIVE); URINE LEUKOCYTE ESTERASE NEGATIVE (NEGATIVE); URINE NITRITE NEGATIVE (NEGATIVE); URINE PROTEIN TRACE (NEGATIVE); WHITE BLOOD COUNT W/O DIFF 11.9 K/uL (4.2-12.2)
[2018-01-27 13:35] LABS: BLOOD UREA NITROGEN 7 mg/dL (6-20); CREATININE 0.5 mg/dL (0.7-1.2); EST GLOMERULAR FILTRATION RATE > 60 mL/min; TOTAL PROTEIN 7.6 g/dL (6.6-8.7)
[2018-01-27 13:37] LABS: GLUCOSE,RANDOM 177 mg/dL (74-109)
[2018-01-27 13:38] LABS: URINE BACTERIA FEW; URINE EPITHELIAL CELLS 0 - 2 (FEW); URINE HYALINE CAST 0 - 2 /lpf; URINE MUCUS MODERATE; URINE RBC 0 - 2 (NONE SEEN); URINE WBC 0 - 2 (0-2/hpf)
[2018-01-27 13:40] LABS: ALKALINE PHOSPHATASE 104 U/L (40-129); ALT/SGPT 8 U/L (<41); AST/SGOT 15 U/L (10.0-50.0); LIPASE 18 U/L (13-60)
[2018-01-27 13:41] LABS: BILIRUBIN,DIRECT < 0.2 mg/dL (0-0.3)
[2018-01-27] MEDS ORDERED: SUCRALFATE 1 G/10 ML UD PO ONE (14:00)
--- NOTE | 2018-01-29 07:41 | RADIOLOGY REPORT ---
EXAM: ACUTE ABDOMEN SERIES WITH A CHEST HISTORY: EPIGASTRIC ABDOMINAL PAIN, HAD LAP BAND SURGERY NINE DAYS AGO. TECHNIQUE: PA view of the chest and supine and upright views of the abdomen were obtained. Comparison: No prior abdomen series. Chest x-ray 10/16/16. FINDINGS: CHEST: The heart size is within normal limits. No definite acute infiltrate seen. No pleural effusion or pneumothorax evident. Mild thoracic curve to the right. ABDOMEN: Nonspecific bowel gas pattern with some minor small bowel distention in the left mid abdomen measuring up to about 4 cm in diameter. Very few, if any, air fluid levels on the upright view and no free air identified. There is probably some postop change in the left mid abdomen and left upper quadrant presumably from prior bowel surgery. IMPRESSION: 1. MILD THORACIC CURVE TO THE RIGHT. 2. MINOR SMALL BOWEL DISTENTION, NO FREE AIR EVIDENT. 3. POSTOP CHANGES LEFT UPPER QUADRANT AND LEFT MID ABDOMEN LATERALLY. JOB NUMBER: [id number] [facility]
== END 2018-01-27 15:11 | disposition home or self-care (01) ==
LOC: ER 12:28
DX: S39.011A Strain of muscle, fascia and tendon of abdomen, initial encounter (principal); K29.00 Acute gastritis without bleeding; R10.13 Epigastric pain; R11.11 Vomiting without nausea; E11.9 Type 2 diabetes mellitus without complications; X58.XXXA Exposure to other specified factors, initial encounter; Z98.84 Bariatric surgery status
CPT/HCPCS: 74022; 80048; 80076; 81001; 83690; 85025; 99284; 99291

== ENCOUNTER 2018-04-01 03:19 | Emergency (ER) | payer BC ==
--- NOTE | 2018-04-01 03:39 | Emergency Department Record ---
History of Present Illness - General Chief Complaint: Abdominal Pain Stated Complaint: ABDOMINAL PAIN Time Seen by Provider: 04/01/18 03:33 Source: Patient Mode of Arrival: Ambulatory Limitations: No limitations - History of Present Illness Initial Comments: 47 yo male presents to ED for evaluation of pain to the RLQ that began 1 hours prior to arrival. Patient denies fevers, chills, nausea, or vomiting symptoms. Patient does report loose stools. Patient reports previous gastric bypass surgery, denies other abdominal pain surgeries. Patient denies blood in the stools. MD Complaint: Abdominal pain Onset/Timin -: Hour(s) Location: [facility] Radiation: None Migration to: No migration Severity scale (1-10): 7 Quality: Aching Consistency: Constant Improves With: Nothing Worsens With: Nothing Associated Symptoms: Denies other symptoms - Related Data Home Medications Medication Instructions Recorded Confirmed Last Taken Lansoprazole [Prevacid] 30 mg PO DAILY 04/01/18 04/01/18 Unknown Previous Rx's Medication Instructions Recorded Ibuprofen [Motrin] 800 mg PO Q6H PRN #30 tab 04/01/18 Tamsulosin HCl [Flomax] 0.4 mg PO DAILY #15 cap.er.24h 04/01/18 Allergies Allergy/AdvReac Type Severity Reaction Status Date / Time cefazolin sodium Allergy "my throat Verified 01/27/18 12:43 [From Kefzol] gets scratchy." Travel Screening - Travel/Exposure Within Last 30 Days Have you traveled within the last 30 days?: No - Travel Symptoms Symptom Screening: None Review of Systems Constitutional: Denies: Chills, Fever, Malaise, Night sweats Eyes: Denies: Eye discharge, Eye pain ENT: Denies: Congestion, Ear pain, Epistaxis Respiratory: Denies: Cough, Dyspnea Cardiovascular: Denies: Chest pain, Dyspnea on exertion Endocrine: Denies: Fatigue, Heat or cold intolerance Gastrointestinal: Reports: Abdominal pain, Diarrhea. Denies: Nausea, Vomiting Genitourinary: Denies: Incontinence, Retention Musculoskeletal: Denies: Arthralgia, Back pain, Gout, Joint swelling Skin: Denies: Bruising, Change in color Neurological: Denies: Abnormal gait, Confusion, Headache, Seizure Psychiatric: Denies: Anxiety Hematological/Lymphatic: Denies: Anemia, Blood Clots Past Medical History - SOCIAL HISTORY Smoking Status: Never smoker - RESPIRATORY Hx Respiratory Disorders: No - CARDIOVASCULAR Hx Cardio Disorders: No - NEURO Hx Neuro Disorders: No - GI Hx GI Disorders: Yes Hx Abdominal Pain: Yes (epigastric; gastritis) Hx Nausea/Vomiting: Yes Comment:: HASTINGS disease - Hx Genitourinary Disorders: No - ENDOCRINE Hx Endocrine Disorders: Yes Hx Diabetes: Yes (03/2018-off meds) Hx Thyroid Disease: Yes - MUSCULOSKELETAL Hx Musculoskeletal Disorders: Yes Hx Arthritis: Yes (back) - PSYCH Hx Psych Problems: Yes Hx Anxiety: No Hx Behavior Problems: No Hx Depression: Yes Hx Emotional Abuse: No Hx Sexual Abuse: No Hx Suicide Attempt: No - HEMATOLOGY/ONCOLOGY Hx Hematology/Oncology Disorders: No Family Medical History Any Significant Family History?: Yes Hx Cancer: Mother, Brother/Sister Hx Heart Disease: Father, Grandparents *Heart Comment: father- bypass surgery x 4 first at age 38 Physical Exam - General General Appearance: Alert, Oriented x3, Cooperative, Mild distress Limitations: No limitations - Head Head exam: Atraumatic, Normocephalic, Normal inspection Head exam detail: negative: Abrasion, Contusion, Lam's sign, General tenderness, Hematoma, Laceration - Eye Eye exam: Normal appearance. negative: Conjunctival injection, Periorbital swelling, Periorbital tenderness, Scleral icterus - ENT Ear exam: negative: Auricular hematoma, Auricular trauma Nasal Exam: negative: Active bleeding, Discharge, Dried blood, Foreign body Mouth exam: negative: Drooling, Laceration, Tongue elevation - Neck Neck exam: Normal inspection. negative: Meningismus, Tenderness - Respiratory Respiratory exam: Normal lung sounds bilaterally. negative: Rales, Respiratory distress, Rhonchi, Stridor - Cardiovascular Cardiovascular Exam: Regular rate, Normal rhythm, Normal heart sounds - GI/Abdominal GI/Abdominal exam: Soft, Tenderness (TTO RLQ on examination, no rebound, guarding, or peritoneal signs on examination.). negative: Rebound, Rigid - Rectal Rectal exam: Deferred - exam: Deferred - Extremities Extremities exam: Normal inspection. negative: Calf tenderness, Pedal edema, Tenderness - Back Back exam: Denies: CVA tenderness (R), CVA tenderness (L) - Neurological Neurological exam: Alert, Normal gait, Oriented X3 - Psychiatric Psychiatric exam: Normal affect, Normal mood - Skin Skin exam: Normal color. negative: Abrasion Type of lesion: negative: abrasion Course Vital Signs 04/01/18 03:24 Temperature 98 F Pulse Rate [ 68 Pulse Ox Probe] Respiratory 20 Rate Blood Pressure 150/83 [Left Arm] Pulse Ox 100 - Reevaluation(s) Reevaluation #1: 04/01/18 04:50 Labs reviewed and are grossly unremarkable for an acute process Awaiting oral contrast for CT imaging, will monitor closely. Patient reports that his pain symptoms are improved on re-examination. Reevaluation #2: 04/01/18 06:15 CT Abdomen and Pelvis: Obstructive uropathy resulting from 3 mm distal ureteral calculi Patient was updated on all results as well as the plan of care, will initiate treatment with Ibuprofen and Flomax with instructions for follow-up with his PCP in 1-3 days as directed. Medical Decision Making - Lab Data Result diagrams: 04/01/18 03:35 04/01/18 03:35 Disposition Disposition: Discharge Clinical Impression: Kidney stone on right side Disposition: Home, Self-Care Condition: (2) Stable Instructions: Kidney Stones (ED) Additional Instructions: Return to ED if your symptoms worsen or if you have any concerns. Motrin and Flomax as directed. Follow-up with your family doctor in 1-3 days as directed. Prescriptions: Ibuprofen [Motrin] 800 mg PO Q6H PRN #30 tab PRN Reason: Pain - Mild To Moderate (1-7) Tamsulosin HCl [Flomax] 0.4 mg PO DAILY #15 cap.er.24h Forms: Patient Portal Access Time of Disposition: 06:19 Quality - Quality Measures Quality Measures: N/A - Blood Pressure Screening Does Patient Have Any of the Following: No Blood Pressure Classification: Hypertensive Reading Systolic Measurement: 145 Diastolic Measurement: 79 Screening for High Blood Pressure: < First Hypertensive BP, F/U Documented > [ G8950] First Hypertensive Follow-up Interventions: Referral to alternative/primary care provider.
[2018-04-01 03:42] LABS: BASO % 0.3 % (0-6); GRAN % 60.9 % (47-80); HEMATOCRIT 41.8 % (42.0-52.0); HEMOGLOBIN 14.4 gm/dl (14.0-18.0); MEAN CELL VOLUME 86.9 fl (81-97); MEAN CORPUSCULAR HEMOGLOBIN 29.9 pg (27-33); MEAN CORPUSCULAR HGB CONC 34.4 g/dl (32-36); MEAN PLATELET VOLUME 10.7 fl (7.4-10.4); MONO % 6.8 % (0-9); PLATELET COUNT 271 K/uL (130-400); RED BLOOD COUNT 4.81 M/uL (4.40-5.70); RED CELL DISTRIBUTION WIDTH 14.6 % (11.5-14.5); WHITE BLOOD COUNT W/O DIFF 11.5 K/uL (4.2-12.2)
[2018-04-01] MEDS: ONDANSETRON HCL IV 4 MG/2 ML VIAL IVP ONE (03:42)
[2018-04-01] MEDS: 0.9 % SODIUM CHLORIDE 1000ML 1,000 ML IV SCH (03:42)
[2018-04-01] MEDS: KETOROLAC 30 MG/ML VIAL IVP ONE (03:43)
[2018-04-01 03:47] LABS: URINE APPEARANCE CLEAR; URINE BILIRUBIN NEGATIVE (NEGATIVE); URINE BLOOD MODERATE (NEGATIVE); URINE COLOR YELLOW; URINE GLUCOSE (UA) NEGATIVE (NEGATIVE); URINE KETONE NEGATIVE (NEGATIVE); URINE LEUKOCYTE ESTERASE NEGATIVE (NEGATIVE); URINE NITRITE NEGATIVE (NEGATIVE); URINE PROTEIN NEGATIVE (NEGATIVE); URINE UROBILINOGEN 0.2 E.U./dL (0.20 - 1.00)
[2018-04-01 03:51] LABS: URINE BACTERIA NONE SEEN; URINE EPITHELIAL CELLS 0 - 2 (FEW); URINE WBC 0 - 2 (0-2/hpf)
[2018-04-01 03:55] LABS: BLOOD UREA NITROGEN 11 mg/dL (6-20); CREATININE 0.6 mg/dL (0.7-1.2); EST GLOMERULAR FILTRATION RATE > 60 mL/min
[2018-04-01 03:56] LABS: TOTAL PROTEIN 7.6 g/dL (6.6-8.7)
[2018-04-01 03:58] LABS: GLUCOSE,RANDOM 136 mg/dL (74-109)
[2018-04-01 04:00] LABS: ALB/GLOB RATIO 1.2 (1.1-1.8); ALBUMIN 4.2 g/dL (4.0-5.0); ALKALINE PHOSPHATASE 104 U/L (40-129); ALT/SGPT 12 U/L (<41); AST/SGOT 19 U/L (10.0-50.0); LIPASE 22 U/L (13-60)
--- NOTE | 2018-04-02 09:14 | CT SCAN REPORT ---
EXAM: CT OF THE ABDOMEN AND PELVIS WITH CONTRAST HISTORY: RIGHT LOWER QUADRANT ABDOMINAL PAIN FOR APPROXIMATELY TWO HOURS. PRIOR GASTRIC BYPASS IN SEPTEMBER OF 2017. TECHNIQUE: Contrast enhanced helical CT examination of the abdomen and pelvis was performed including delayed images through the kidneys with 95 ml of Omnipaque 300 utilized. Comparison: CT of the abdomen and pelvis with contrast dated 11/26/17. Acute abdominal series dated 01/27/18. FINDINGS: There is minor dependent atelectasis in each lung base. The lung bases are otherwise clear. No pleural or pericardial effusion. The wall of the distal esophagus appears borderline to mildly prominent in thickness likely relating to incomplete distention though a mucosal abnormality is not entirely excluded. No new focal abnormality demonstrated within the liver, spleen, pancreas, and adrenal glands. There is mild distention of the gallbladder without calcified stone, wall thickening or pericholecystic fluid. No biliary ductal dilatation is seen. The kidneys are normal in size and position. They are smoothly marginated. No definite nephrolithiasis nor renal mass. There is delay in excretion of contrast into the right renal collecting system which is mildly dilated down to the level of the distal ureter just proximal to the vesicoureteral junction where there is an obstructing 2.8 mm in diameter calculus. The left renal collecting system is normal in appearance. There is mild right perinephric fat stranding. No intraabdominal nor retroperitoneal lymphadenopathy is seen. There is minimal atherosclerosis without aneurysmal dilatation of the abdominal aorta nor its branches. Post gastric bypass surgery changes are present. No gross bowel dilatation nor bowel wall thickening is seen though evaluation is limited by lack of oral contrast utilization. Occasional diverticula are suggested in the distal colon without evidence of diverticulitis. No pelvic mass nor lymphadenopathy. No intrinsic urinary bladder abnormality is seen though evaluation is limited by lack of distention. No lytic or blastic bone lesion. There are mild degenerative changes scattered throughout the visualized spine and hips. IMPRESSION: 1. 2.8 MM OBSTRUCTING CALCULUS IN THE DISTAL RIGHT URETER JUST PROXIMAL TO THE URETEROVESICAL JUNCTION CAUSING MILD UPSTREAM COLLECTING SYSTEM DILATATION AND MILD PERINEPHRIC FAT STRANDING. 2. POST GASTRIC BYPASS SURGERY CHANGES REDEMONSTRATED. 3. OCCASIONAL DIVERTICULA IN THE DISTAL COLON WITHOUT EVIDENCE OF DIVERTICULITIS. JOB NUMBER: [id number] [facility]
== END 2018-04-01 06:36 | disposition home or self-care (01) ==
LOC: ER 03:19
DX: N20.0 Calculus of kidney (principal)
CPT/HCPCS: 74177; 80053; 81001; 83690; 85025; 96361; 96374; 96375; 99284; J1885; J2405; J7030

== ENCOUNTER 2018-04-04 04:20 | Emergency (ER) | payer BC ==
[2018-04-04] MEDS ORDERED: ONDANSETRON HCL IV 4 MG/2 ML VIAL IV ONE (04:36)
[2018-04-04] MEDS ORDERED: SODIUM CHLORIDE 0.9% 500 ML IV ONE (04:36)
[2018-04-04] MEDS ORDERED: KETOROLAC 30 MG/ML VIAL IVP ONE (04:37)
--- NOTE | 2018-04-04 04:42 | Emergency Department Record ---
History of Present Illness - General Chief complaint: Flank Pain Stated complaint: KIDNEY STONE PAIN Time Seen by Provider: 04/04/18 04:23 Source: Patient Mode of Arrival: Ambulatory Limitations: No limitations - History of Present Illness Initial comments: The patient is here due to worsening R flank pain today. He was diagnosed with a R ureter stone 3 days ago here in the ER. On CT he had a 2.8 mm stone at the R UVJ. The patient had been doing fairly well but then the pain seemed to get worse today. He has been nauseated but has had no vomiting or fever. The patient states this is his first episode of kidney stones. He does have a hx of gastric bypass surgery and is unable to take oral NSAIDS. MD Complaint: Other Onset/Timin -: Days(s) Severity: Severe Severity scale (1-10): 10 Improves with: None Worsens with: None - Related Data Home Medications Medication Instructions Recorded Confirmed Last Taken Oxycodone HCl/Acetaminophen 1 - 2 tab PO Q4H PRN 04/04/18 04/04/18 Unknown [Oxycodone/Acetaminophen 5mg/325mg] Previous Rx's Medication Instructions Recorded Tamsulosin HCl [Flomax] 0.4 mg PO DAILY #15 cap.er.24h 04/01/18 Allergies Allergy/AdvReac Type Severity Reaction Status Date / Time cefazolin sodium Allergy "my throat Verified 01/27/18 12:43 [From Kefzol] gets scratchy." Travel Screening - Travel/Exposure Within Last 30 Days Have you traveled within the last 30 days?: No - Travel/Exposure Within Last Year Have you traveled outside the [place] in the last year?: No - Additonal Travel Details Have you been exposed to anyone with a communicable illness?: No - Travel Symptoms Symptom Screening: None Review of Systems Constitutional: Denies: Chills, Fever Eyes: Denies: Eye discharge ENT: Denies: Congestion Respiratory: Denies: Cough, Dyspnea Cardiovascular: Denies: Arrhythmia Endocrine: Denies: Fatigue Gastrointestinal: Reports: Abdominal pain, Nausea. Denies: Diarrhea, Vomiting Genitourinary: Denies: Dysuria Musculoskeletal: Denies: Arthralgia Past Medical History - SOCIAL HISTORY Smoking Status: Never smoker Alcohol Use: None Drug Use: None - RESPIRATORY Hx Respiratory Disorders: No - CARDIOVASCULAR Hx Cardio Disorders: No - NEURO Hx Neuro Disorders: No - GI Hx GI Disorders: Yes Hx Abdominal Pain: Yes (epigastric; gastritis) Hx Nausea/Vomiting: Yes Comment:: HASTINGS disease - Hx Genitourinary Disorders: No - ENDOCRINE Hx Endocrine Disorders: Yes Hx Diabetes: Yes (03/2018-off meds) Hx Thyroid Disease: Yes - MUSCULOSKELETAL Hx Musculoskeletal Disorders: Yes Hx Arthritis: Yes (back) - PSYCH Hx Psych Problems: Yes Hx Anxiety: No Hx Behavior Problems: No Hx Depression: Yes Hx Emotional Abuse: No Hx Sexual Abuse: No Hx Suicide Attempt: No - HEMATOLOGY/ONCOLOGY Hx Hematology/Oncology Disorders: No Family Medical History Any Significant Family History?: No Hx Cancer: Mother, Brother/Sister Hx Heart Disease: Father, Grandparents *Heart Comment: father- bypass surgery x 4 first at age 38 Physical Exam - General General Appearance: Alert, Oriented x3, Cooperative, No acute distress - Head Head exam: Atraumatic, Normocephalic, Normal inspection - Eye Eye exam: Normal appearance, PERRL - Neck Neck exam: Normal inspection, Full ROM. negative: Tenderness - Respiratory Respiratory exam: Normal lung sounds bilaterally. negative: Respiratory distress - Cardiovascular Cardiovascular Exam: Regular rate, Normal rhythm, Normal heart sounds - GI/Abdominal GI/Abdominal exam: Soft, Normal bowel sounds. negative: Distended, Rebound, Rigid, Tenderness - Extremities Extremities exam: Normal inspection, Full ROM, Normal capillary refill. negative: Tenderness - Back Back exam: Reports: Normal inspection, CVA tenderness (R). Denies: Vertebral tenderness - Neurological Neurological exam: Alert, Normal gait, Oriented X3. negative: Abnormal gait, Motor sensory deficit - Skin Skin exam: negative: Rash Course Vital Signs 04/04/18 04:22 Temperature 98.1 F Pulse Rate 91 H Respiratory 20 Rate Blood Pressure 165/90 Pulse Ox 99 - Reevaluation(s) Reevaluation #1: The patient is doing better but still having significant pain. We will treat him with Dilaudid next due to the persistent pain. 04/04/18 05:26 Reevaluation #2: The patient is doing a lot better at this time. He is much more comfortable. Due to the fact the patient does not seem to be able to pass the stone on his own I did discuss the case with Dr. Diaz who is regional loss prevention manager for Urology. He would like the patient to be sent to the [facility] ED for further evaluation and surgery. I then did discuss the case with Dr. Doan who is the ED attending and he does accept the patent for transfer. 04/04/18 05:43 Medical Decision Making - Data Complexity MDM Data: Labs Ordered and/or Reviewed - Lab Data Result diagrams: 04/04/18 04:30 04/04/18 04:30 Disposition Disposition: Transfer Clinical Impression: Kidney stone on right side Disposition: Acute Care Hospital Transfer Transfer To: [facility] Reason For Transfer: Urology Accepting Physician: Olimpia Time Discussed w/Accepting Physician: 05:43 Condition: (2) Stable Additional Instructions: Please proceed to the ER at [facility] for Urology to evaluate. Do NOT have anything to eat or drink. Forms: Patient Portal Access Time of Disposition: :43 Quality - Quality Measures Quality Measures: N/A - Blood Pressure Screening View Details: Yes Does Patient Have Any of the Following: No Blood Pressure Classification: Hypertensive Reading Systolic Measurement: 165 Diastolic Measurement: 90 Screening for High Blood Pressure: < First Hypertensive BP, F/U Documented > [ G8950] First Hypertensive Follow-up Interventions: Referral to alternative/primary care provider.
[2018-04-04 04:46] LABS: BASO % 0.1 % (0-6); EOS % 0.3 % (0-6); GRAN % 77.1 % (47-80); HEMATOCRIT 41.7 % (42.0-52.0); HEMOGLOBIN 14.2 gm/dl (14.0-18.0); MEAN CORPUSCULAR HGB CONC 34.1 g/dl (32-36); MEAN PLATELET VOLUME 9.9 fl (7.4-10.4); MONO % 8.5 % (0-9); PLATELET COUNT 248 K/uL (130-400); RED BLOOD COUNT 4.74 M/uL (4.40-5.70); RED CELL DISTRIBUTION WIDTH 14.3 % (11.5-14.5)
[2018-04-04 04:51] LABS: URINE APPEARANCE CLEAR; URINE BILIRUBIN NEGATIVE (NEGATIVE); URINE BLOOD SMALL (NEGATIVE); URINE COLOR YELLOW; URINE GLUCOSE (UA) NEGATIVE (NEGATIVE); URINE KETONE 40 mg/dL (NEGATIVE); URINE LEUKOCYTE ESTERASE NEGATIVE (NEGATIVE); URINE NITRITE NEGATIVE (NEGATIVE); URINE PROTEIN NEGATIVE (NEGATIVE)
[2018-04-04 04:57] LABS: BLOOD UREA NITROGEN 9 mg/dL (6-20); CREATININE 0.9 mg/dL (0.7-1.2); EST GLOMERULAR FILTRATION RATE > 60 mL/min
[2018-04-04 05:00] LABS: GLUCOSE,RANDOM 183 mg/dL (74-109)
[2018-04-04 05:02] LABS: URINE RBC 0 - 2 (NONE SEEN)
[2018-04-04 05:03] LABS: URINE BACTERIA FEW; URINE EPITHELIAL CELLS 0 - 2 (FEW); URINE WBC NONE SEEN (0-2/hpf)
[2018-04-04] MEDS ORDERED: 0.9 % SODIUM CHLORIDE 1,000 ML BAG IV ONE (05:04)
[2018-04-04] MEDS ORDERED: HYDROMORPHONE HCL 2 MG/ML VIAL IVP ONE (05:07)
== END 2018-04-04 06:11 | disposition short-term general hospital (02) ==
LOC: ER 04:20
DX: N20.0 Calculus of kidney (principal); R11.0 Nausea; Z98.84 Bariatric surgery status
CPT/HCPCS: 99284 ×2; 96374; 96375; 85025; 80048; 81001; J1885; J2405; J1170; J7030

== ENCOUNTER 2018-09-01 19:39 | Emergency (ER) | payer BC ==
[2018-09-01] MEDS ORDERED: CLINDAMYCIN 150 MG CAP PO ONE (19:53)
--- NOTE | 2018-09-01 19:53 | Emergency Department Record ---
History of Present Illness - General Chief complaint: Extremity Problem Stated complaint: RT LEG INFECTION Time Seen by Provider: 09/01/18 19:40 Source: Patient Mode of Arrival: Ambulatory Limitations: No limitations - History of Present Illness Initial comments: 47 yo male presents to ED for evaluation of pain and redness to the right lower extremity after striking his lipscomb on a trailer hitch 1 week ago. Patient reports that the area is painful to touch and warm to touch. Patient denies fevers, chills, or laceration/break in the skin when the injury occurred. Patient also denies history of DM/PVD. MD Complaint: Extremity pain Onset/Timin -: Week(s) Location: Right, Lower Leg History of Same: Yes Radiation: None Severity scale (1-10): 5 Consistency: Constant Improves with: Nothing Worsens with: Nothing Associated Symptoms: Denies other symptoms - Related Data Previous Rx's Medication Instructions Recorded Clindamycin HCl [Cleocin HCl] 300 mg PO QID #39 capsule 09/01/18 Allergies Allergy/AdvReac Type Severity Reaction Status Date / Time cefazolin sodium Allergy "my throat Verified 09/01/18 19:52 [From Kefzol] gets scratchy." Travel Screening - Travel/Exposure Within Last 30 Days Have you traveled within the last 30 days?: No - Travel/Exposure Within Last Year Have you traveled outside the [place] in the last year?: No - Additonal Travel Details Have you been exposed to anyone with a communicable illness?: No - Travel Symptoms Symptom Screening: Fever (Subjective) Review of Systems Constitutional: Denies: Chills, Fever, Malaise, Night sweats Eyes: Denies: Eye discharge, Eye pain ENT: Denies: Congestion, Ear pain, Epistaxis Respiratory: Denies: Cough, Dyspnea Cardiovascular: Denies: Chest pain, Dyspnea on exertion Endocrine: Denies: Fatigue, Heat or cold intolerance Gastrointestinal: Denies: Abdominal pain, Nausea, Vomiting Genitourinary: Denies: Incontinence, Retention Musculoskeletal: Denies: Arthralgia, Back pain Skin: Reports: Other. Denies: Bruising, Change in color Neurological: Denies: Abnormal gait, Confusion, Headache, Seizure Psychiatric: Denies: Anxiety Hematological/Lymphatic: Denies: Anemia, Blood Clots Past Medical History - SOCIAL HISTORY Smoking Status: Never smoker Alcohol Use: None Drug Use: None - RESPIRATORY Hx Respiratory Disorders: No - CARDIOVASCULAR Hx Cardio Disorders: No - NEURO Hx Neuro Disorders: No - GI Hx GI Disorders: Yes Hx Abdominal Pain: Yes (epigastric; gastritis) Hx Nausea/Vomiting: Yes Comment:: HASTINGS disease - Hx Genitourinary Disorders: No - ENDOCRINE Hx Endocrine Disorders: Yes Hx Diabetes: Yes (03/2018-off meds) Hx Thyroid Disease: Yes - MUSCULOSKELETAL Hx Musculoskeletal Disorders: Yes Hx Arthritis: Yes (back) - PSYCH Hx Psych Problems: Yes Hx Anxiety: No Hx Behavior Problems: No Hx Depression: Yes Hx Emotional Abuse: No Hx Sexual Abuse: No Hx Suicide Attempt: No - HEMATOLOGY/ONCOLOGY Hx Hematology/Oncology Disorders: No Family Medical History Any Significant Family History?: Yes Hx Cancer: Mother, Brother/Sister Hx Heart Disease: Father, Grandparents *Heart Comment: father- bypass surgery x 4 first at age 38 Physical Exam - General General Appearance: Alert, Oriented x3, Cooperative, Mild distress Limitations: No limitations - Head Head exam: Atraumatic, Normocephalic, Normal inspection Head exam detail: negative: Abrasion, Contusion, Lam's sign, General tenderness, Hematoma, Laceration - Eye Eye exam: Normal appearance. negative: Conjunctival injection, Periorbital swelling, Periorbital tenderness, Scleral icterus - ENT Ear exam: negative: Auricular hematoma, Auricular trauma Nasal Exam: negative: Active bleeding, Discharge, Dried blood, Foreign body Mouth exam: negative: Drooling, Laceration, Muffled voice, Tongue elevation - Neck Neck exam: Normal inspection. negative: Meningismus, Tenderness - Respiratory Respiratory exam: Normal lung sounds bilaterally. negative: Rales, Respiratory distress, Rhonchi, Stridor - Cardiovascular Cardiovascular Exam: Regular rate, Normal rhythm, Normal heart sounds - GI/Abdominal GI/Abdominal exam: Soft. negative: Rebound, Rigid, Tenderness - Rectal Rectal exam: Deferred - exam: Deferred - Extremities Extremities exam: Tenderness, Other (Mild-Moderate TTP over the anterior mid- lower extremity with mild erythema present, mild warmth to palpation. No abscess is present on examination.). negative: Calf tenderness, Pedal edema - Back Back exam: Denies: CVA tenderness (R), CVA tenderness (L) - Neurological Neurological exam: Alert, Normal gait, Oriented X3 - Psychiatric Psychiatric exam: Normal affect, Normal mood - Skin Skin exam: Normal color. negative: Abrasion Type of lesion: negative: abrasion Course Vital Signs 09/01/18 19:46 Temperature 98.3 F Pulse Rate 93 H Respiratory 16 Rate Blood Pressure 140/85 Pulse Ox 99 - Reevaluation(s) Reevaluation #1: 09/01/18 19:57 Area of cellulitis measure approximately 6 cm in diameter No underlying abscess is present on examination. Patient was counseled re: outpatient treatment for cellulitis, patient appears stable for discharge at this time on Clindamycin as directed. Disposition Disposition: Discharge Clinical Impression: Cellulitis of lower leg Disposition: Home, Self-Care Condition: (2) Stable Instructions: Cellulitis (ED) Additional Instructions: Return to ED if your symptoms worsen or if you have any concerns. Clindamycin as directed. Follow-up with your family doctor in 3-5 days as directed. Prescriptions: Clindamycin HCl [Cleocin HCl] 300 mg PO QID #39 capsule Forms: Patient Portal Access Time of Disposition: 19:53 Quality - Quality Measures Quality Measures: N/A - Blood Pressure Screening Does Patient Have Any of the Following: No Blood Pressure Classification: Pre-Hypertensive BP Reading Systolic Measurement: 140 Diastolic Measurement: 85 Screening for High Blood Pressure: < Pre-Hypertensive BP, F/U Documented > [ G8950] Pre-Hypertensive Follow-up Interventions: Referral to alternative/primary care provider.
== END 2018-09-01 20:00 | disposition home or self-care (01) ==
LOC: ER 19:39
DX: L03.115 Cellulitis of right lower limb (principal)
CPT/HCPCS: 99282

== ENCOUNTER 2018-12-09 09:35 | Day surgery (SDC) | payer BC ==
[2018-12-09] MEDS ORDERED: PROPOFOL 10 MG/ML VIAL IV ONE (09:36)
[2018-12-09] MEDS ORDERED: LIDOCAINE 2% MDV (20MG/ML) 20ML VIAL IV ONE (09:36)
--- NOTE | 2018-12-10 08:10 | Operative Note ---
DATE OF SURGERY: 12/09/2018 OPERATION: COLONOSCOPY with random biopsy and stool aspiration. PREOPERATIVE DIAGNOSIS: Diarrhea and lower abdominal pain. POSTOPERATIVE DIAGNOSES: 1. [id number] quality colonic preparation. 2. Otherwise normal exam including normal-appearing terminal ileum. PROCEDURE: After informed consent was obtained from the patient, he was placed in the left lateral decubitus position in the endoscopy suite, sedated and monitored by the department of anesthesia. Digital rectal exam was unremarkable. A well-lubricated [id number] colonoscope was inserted into the rectum and advanced throughout a tortuous redundant colon that was fairly to poorly prepared. Transabdominal pressure was required to intubate the cecal cap. Numerous areas were rinsed and remaining stool and mucus was aspirated via the colonoscope. A portion will be sent for infectious workup, particularly C difficile toxin. The terminal ileum was inspected and appeared unremarkable endoscopically. Random biopsies were obtained throughout the right, left, and transverse colon. There were no polyps seen in the cecum, ascending colon, transverse colon, descending colon, sigmoid colon, and rectum. No obvious underlying inflammation was identified. Small polyps could have been obscured by the preparation quality, however. J-turn views of the anorectum were unrevealing. The endoscope was straightened, the rectal ampulla deflated, and the endoscope was removed. RECOMMENDATIONS: We will await the results of stool studies and biopsies. If all workup is negative for infection and inflammatory changes, then perhaps the patient may have irritable bowel syndrome. The patient should undergo repeat exam in 1 year based on the preparation quality. As always, thank you for allowing me to participate in the healthcare of your patients. CC: DO DAE Ordaz
== END 2018-12-09 11:09 | disposition home or self-care (01) ==
LOC: HOP 09:35
PROVIDERS: ATTEND Internal Medicine Gastroenterology
DX: R19.7 Diarrhea, unspecified (principal); R10.30 Lower abdominal pain, unspecified
CPT/HCPCS: 87493

== ENCOUNTER 2019-05-02 07:01 | Emergency (ER) | payer BC ==
[2019-05-02] MEDS ORDERED: 0.9 % SODIUM CHLORIDE 1,000 ML BAG IV ONE (07:14)
[2019-05-02] MEDS ORDERED: ONDANSETRON HCL IV 4 MG/2 ML VIAL IV ONE (07:14)
[2019-05-02] MEDS ORDERED: ACETAMINOPHEN 1,000 MG/100 ML BTL IVPB ONE (07:16)
--- NOTE | 2019-05-02 07:28 | Emergency Department Record ---
History of Present Illness - General Chief Complaint: Abdominal Pain Stated Complaint: ABD PAIN Time Seen by Provider: 05/02/19 07:02 Source: Patient Mode of Arrival: Ambulatory Limitations: No limitations - History of Present Illness Initial Comments: The patient is here due to a 5 day hx of L sided AP. The pain is mainly constant and is a sharp aching pain. It has been fairly constant over the last 5 days and has not worsened. There has been no nausea, vomiting, fever, or back pain but the patient has had chronic diarrhea for many months. The pain seems to be worse after eating. He has had Gastric Bypass in the past along with multiple revisions in [facility]. The patient has had similar pain as this in the past when he needed a surgical site revision for scar tissue. MD Complaint: Abdominal pain Onset/Timin -: Days(s) Location: Suprapubic, LUQ, LLQ Quality: Sharp Consistency: Constant Improves With: Nothing Worsens With: Eating Associated Symptoms: Diarrhea - Related Data Allergies Allergy/AdvReac Type Severity Reaction Status Date / Time cefazolin sodium Allergy "my throat Verified 05/02/19 07:08 [From Kefzol] gets scratchy." hydrocodone [From [place]] AdvReac RASH Verified 05/02/19 07:08 Travel Screening - Travel/Exposure Within Last 30 Days Have you traveled within the last 30 days?: No Review of Systems Constitutional: Denies: Chills, Fever Eyes: Denies: Eye discharge ENT: Denies: Congestion Respiratory: Denies: Cough Cardiovascular: Denies: Arrhythmia Endocrine: Denies: Fatigue Gastrointestinal: Reports: Abdominal pain, Diarrhea. Denies: Nausea, Vomiting Genitourinary: Denies: Dysuria Musculoskeletal: Denies: Arthralgia Skin: Denies: Bruising Past Medical History - SOCIAL HISTORY Smoking Status: Never smoker Alcohol Use: None Drug Use: None - RESPIRATORY Hx Respiratory Disorders: No - CARDIOVASCULAR Hx Cardio Disorders: No - NEURO Hx Neuro Disorders: No - GI Hx GI Disorders: Yes Hx Abdominal Pain: Yes (epigastric; gastritis) Hx Nausea/Vomiting: Yes Comment:: HASTINGS disease - Hx Genitourinary Disorders: Yes Hx Kidney Stones: Yes - ENDOCRINE Hx Endocrine Disorders: No - MUSCULOSKELETAL Hx Musculoskeletal Disorders: Yes Hx Arthritis: Yes (back) - PSYCH Hx Psych Problems: Yes Hx Depression: Yes - HEMATOLOGY/ONCOLOGY Hx Hematology/Oncology Disorders: No Family Medical History Any Significant Family History?: Yes Hx Cancer: Mother, Brother/Sister Hx Heart Disease: Father, Grandparents *Heart Comment: father- bypass surgery x 4 first at age 38 Physical Exam - General General Appearance: Alert, Oriented x3, Cooperative, No acute distress - Head Head exam: Atraumatic, Normocephalic, Normal inspection - Eye Eye exam: Normal appearance, PERRL - ENT Throat exam: Normal inspection. negative: Tonsillar erythema, Tonsillar exudate - Neck Neck exam: Normal inspection, Full ROM. negative: Tenderness - Respiratory Respiratory exam: Normal lung sounds bilaterally. negative: Respiratory distre ss - Cardiovascular Cardiovascular Exam: Regular rate, Normal rhythm, Normal heart sounds - GI/Abdominal GI/Abdominal exam: Soft, Normal bowel sounds. negative: Distended, Guarding, Hernia, Mass, Rebound, Rigid, Tenderness - Extremities Extremities exam: Normal inspection, Full ROM, Normal capillary refill. negative: Tenderness - Back Back exam: Reports: Normal inspection - Neurological Neurological exam: Alert, Normal gait. negative: Abnormal gait - Psychiatric Psychiatric exam: negative: Anxious - Skin Skin exam: negative: Rash Course Vital Signs 05/02/19 07:03 Temperature 97.7 F Pulse Rate 71 Respiratory 18 Rate Blood Pressure 126/83 Pulse Ox 98 - Reevaluation(s) Reevaluation #1: The patient is doing well at this time. He is resting comfortably with no new complaints and appears very comfortable. 05/02/19 07:54 Reevaluation #2: The patient is doing well at this time. He denies any significant discomfort or pain. I did discuss the neg abdominal CT and the need for F/U with his Gastric surgeon later this week. 05/02/19 09:45 Medical Decision Making - Data Complexity MDM Data: Labs Ordered and/or Reviewed, X-Ray Ordered and/or Reviewed - Lab Data Result diagrams: 05/02/19 07:20 05/02/19 07:20 - Radiology Data Radiology results: Report reviewed (Abd CT: neg for any acute abnormalities. ) Disposition Disposition: Discharge Clinical Impression: Abdominal pain Qualifiers: Abdominal location: unspecified location Qualified Code(s): R10.9 - Unspecified abdominal pain Disposition: Home, Self-Care Condition: (2) Stable Instructions: Abdominal Pain (ED) Additional Instructions: Please use Tylenol for pain and please see your surgeon later this week. Return to the ER for any worsening pain, fever, or vomiting. Forms: Patient Portal Access Time of Disposition: 09:47 Quality - Quality Measures Quality Measures: N/A - Blood Pressure Screening View Details: Yes Does Patient Have Any of the Following: No Blood Pressure Classification: Pre-Hypertensive BP Reading Systolic Measurement: 126 Diastolic Measurement: 83 Screening for High Blood Pressure: < Pre-Hypertensive BP, F/U Documented > [G8950] Pre-Hypertensive Follow-up Interventions: Referral to alternative/primary care provider.
[2019-05-02 07:36] LABS: ABSOLUTE NEUTROPHIL COUNT 5.89; BASO % 0.7 % (0-6); EOS % 0.8 % (0-6); GRAN % 64.7 % (47-80); HEMATOCRIT 44.1 % (42.0-52.0); HEMOGLOBIN 14.9 gm/dl (14.0-18.0); LYMPH % 27.4 % (16-45); MEAN CELL VOLUME 86.5 fl (81-97); MEAN CORPUSCULAR HEMOGLOBIN 29.2 pg (27-33); MEAN CORPUSCULAR HGB CONC 33.8 g/dl (32-36); MEAN PLATELET VOLUME 10.2 fl (7.4-10.4); MONO % 6.4 % (0-9); PLATELET COUNT 281 K/uL (130-400); RED CELL DISTRIBUTION WIDTH 13.7 % (11.5-14.5); WHITE BLOOD COUNT W/O DIFF 9.1 K/uL (4.2-12.2)
[2019-05-02 07:44] LABS: BLOOD UREA NITROGEN 8 mg/dL (6-20); CREATININE 0.6 mg/dL (0.7-1.2); EST GLOMERULAR FILTRATION RATE > 60 mL/min
[2019-05-02 07:45] LABS: LIPASE 20 U/L (13-60); TOTAL PROTEIN 6.9 g/dL (6.6-8.7)
[2019-05-02 07:47] LABS: GLUCOSE,RANDOM 122 mg/dL (74-109)
[2019-05-02 07:49] LABS: ALT/SGPT 8 U/L (<41)
[2019-05-02 07:50] LABS: ALBUMIN 4.1 g/dL (4.0-5.0); ALKALINE PHOSPHATASE 95 U/L (40-129); AST/SGOT 12 U/L (10.0-50.0)
[2019-05-02 07:51] LABS: BILIRUBIN,DIRECT < 0.2 mg/dL (0-0.3)
[2019-05-02 08:31] LABS: URINE APPEARANCE CLEAR; URINE BILIRUBIN NEGATIVE (NEGATIVE); URINE BLOOD NEGATIVE (NEGATIVE); URINE COLOR YELLOW; URINE GLUCOSE (UA) NEGATIVE (NEGATIVE); URINE KETONE NEGATIVE (NEGATIVE); URINE LEUKOCYTE ESTERASE NEGATIVE (NEGATIVE); URINE NITRITE NEGATIVE (NEGATIVE); URINE PROTEIN NEGATIVE (NEGATIVE)
--- NOTE | 2019-05-02 18:23 | CT SCAN REPORT ---
EXAM: CT SCAN ABDOMEN/PELVIS W CONTRAST HISTORY: LEFT-SIDED ABDOMINAL PAIN. PRIOR GASTRIC BYPASS. TECHNIQUE: Following oral and intravenous contrast administration, helical CT examination of the abdomen and pelvis is performed including delayed images through the kidneys with 100 mL of Omnipaque-300 utilized. COMPARISON: CT abdomen and pelvis with contrast dated 04/01/2018. FINDINGS: There is mild dependent atelectasis in each lung base. The visualized lung bases are otherwise clear. No pleural or pericardial effusion. The heart is not enlarged. The liver, spleen, pancreas, adrenal glands, and kidneys are normal in appearance. The gallbladder is unremarkable. No biliary ductal dilatation. The portal vein and splenic vein are patent. There is minor atherosclerosis without aneurysmal dilatation of the abdominal aorta nor iliac arteries. There are several nonenlarged lymph nodes within the central mesentery. The largest of these measures 9.6 mm in short-axis diameter. These lymph nodes are slightly more pronounced than on the prior examination. These are nonspecific. Nonenlarged mesenteric lymph nodes are also noted within the right mid to lower abdomen with the largest measuring 9.5 mm in short-axis diameter. These also are slightly more pronounced in the interval. The largest on the prior examination in this region measured 6 mm in short-axis diameter. No new pelvic mass nor pelvic adenopathy. No free pelvic fluid. Evaluation of the urinary bladder is limited by lack of distention. Post gastric bypass surgery changes again noted. No new bowel dilatation. There may be a few tiny diverticula within the distal colon without evidence of diverticulitis. There are short segments of apparent mild wall thickening of the colon particularly the right colon likely due to incomplete distention though a mucosal abnormality is not entirely excluded. No lytic or blastic bone lesion. Mild degenerative changes scattered throughout the visualized spine. IMPRESSION: 1. NO DEFINITE CT EVIDENCE OF AN ACUTE INTRA-ABDOMINAL NOR INTRAPELVIC PROCESS. 2. STATUS POST SALEEM-EN-Y GASTRIC BYPASS. 3. SHORT SEGMENTS OF APPARENT BORDERLINE TO MILD WALL THICKENING INVOLVING THE RIGHT COLON LIKELY DUE TO INCOMPLETE DISTENTION THOUGH MUCOSAL ABNORMALITY CANNOT BE EXCLUDED. 4. THERE ARE MULTIPLE NONENLARGED MESENTERIC LYMPH NODES IDENTIFIED, A FEW OF WHICH APPEAR SLIGHTLY MORE PRONOUNCED IN THE INTERVAL. THIS IS NONSPECIFIC. JOB NUMBER: [id number] [facility]
== END 2019-05-02 09:59 | disposition home or self-care (01) ==
LOC: ER 07:01
DX: R10.32 Left lower quadrant pain (principal); R19.7 Diarrhea, unspecified; R10.10 Upper abdominal pain, unspecified; K75.81 Nonalcoholic steatohepatitis (NASH); R11.2 Nausea with vomiting, unspecified
CPT/HCPCS: 74177; 80048; 80076; 81003; 83690; 85025; 86140; 96361; 96365; 96375; 99284; 99285; J2405; J7030

== ENCOUNTER 2019-06-18 13:21 | Emergency (ER) | payer BC ==
[2019-06-18] MEDS ORDERED: KETOROLAC 30 MG/ML VIAL IVP ONE (13:38)
[2019-06-18] MEDS ORDERED: PROPARACAINE HCL OPTH 15ML BTL OPTH ONE (13:39)
[2019-06-18] MEDS ORDERED: 0.9 % SODIUM CHLORIDE 1,000 ML BAG IV ONE (13:39)
[2019-06-18] MEDS ORDERED: ACETAMINOPHEN 1,000 MG/100 ML BTL IVPB ONE (13:39)
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
[2019-06-18] MEDS ORDERED: ERYTHROMYCIN OPTH OINT 3.5GM OPTH ONE (14:24)
[2019-06-18] MEDS ORDERED: SILVER SULFADIAZINE 25 GM CREAM TOP ONE (14:24)
[2019-06-18] MEDS ORDERED: OXYCODONE HCL/APAP 5MG/325MG TABLET PO ONE (15:20)
== END 2019-06-18 15:47 | disposition home or self-care (01) ==
LOC: ER 13:21
DX: T23.221A Burn of second degree of single right finger (nail) except thumb, initial encounter (principal); T20.19XA Burn of first degree of multiple sites of head, face, and neck, initial encounter; T20.17XA Burn of first degree of neck, initial encounter; T23.192A Burn of first degree of multiple sites of left wrist and hand, initial encounter; T21.11XA Burn of first degree of chest wall, initial encounter; H53.8 Other visual disturbances; X08.8XXA Exposure to other specified smoke, fire and flames, initial encounter; Y92.009 Unspecified place in unspecified non-institutional (private) residence as the place of occurrence of the external cause
CPT/HCPCS: 96374; 96375; 99284; J1885; J7030

== ENCOUNTER 2019-06-19 10:35 | Emergency (ER) | payer BC ==
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
[2019-06-19] MEDS: SILVER SULFADIAZINE 25 GM CREAM TOP ONE (10:53)
== END 2019-06-19 11:07 | disposition home or self-care (01) ==
LOC: ER 10:35
DX: Z48.00 Encounter for change or removal of nonsurgical wound dressing (principal); T23.222D Burn of second degree of single left finger (nail) except thumb, subsequent encounter; X08.8XXD Exposure to other specified smoke, fire and flames, subsequent encounter; Y92.009 Unspecified place in unspecified non-institutional (private) residence as the place of occurrence of the external cause
CPT/HCPCS: 99282

== ENCOUNTER 2019-06-24 10:56 | Emergency (ER) | payer BC ==
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
== END 2019-06-24 11:44 | disposition home or self-care (01) ==
LOC: ER 10:56
DX: T23.292D Burn of second degree of multiple sites of left wrist and hand, subsequent encounter (principal); X08.8XXA Exposure to other specified smoke, fire and flames, initial encounter; Y92.009 Unspecified place in unspecified non-institutional (private) residence as the place of occurrence of the external cause
CPT/HCPCS: 99282